=== PATIENT | male | born 1965 | race Caucasian/White ===

== ENCOUNTER → 2018-06-18 | Outpatient (CLI) | payer OTHER ==
[2018-06-18 22:16] LABS: ESTRADIOL LEVEL 14.1 pg/mL (7.6-42.6); PROLACTIN 11.7 ng/mL (4.0-15.2)
[2018-06-21 21:09] LABS: TESTOSTERONE FREE 4.68 ng/dL (5.00-21.00); TESTOSTERONE TOTAL 154 ng/dL (264-916)
== END | disposition home or self-care (01) ==
LOC: LAB 10:12
PROVIDERS: ATTEND Urology
DX: Z12.5 Encounter for screening for malignant neoplasm of prostate (principal); E29.1 Testicular hypofunction
CPT/HCPCS: 36415; 82670; 83002; 84146; 84402; 84403; G0103

== ENCOUNTER → 2018-06-30 | Outpatient (CLI) | payer OTHER ==
[~2018-06-30] MED LIST: BETA15CR5 TP; ERGO500027 PO; METF500T16 PO
--- NOTE | 2018-07-01 12:12 | SLEEP ---
DATE OF STUDY: 06/30/2018 ATTENDING PHYSICIAN: Dr. Leona Shields. The patient is a 53-year-old who weighs 355 pounds with a BMI of 47. Ideal score was 11. The patient underwent split night study at [facility]. During the night study, the patient spent 426 minutes in bed and slept for 353 minutes with a sleep efficiency of 83%. Sleep latency was 3 minutes with a REM latency of 223 minutes. Overall, sleep architecture showed increased stage 1 sleep and increased stage 2 sleep. Normal slow wave and normal REM sleep. During the initial diagnostic portion of the study, the patient slept for 132 minutes. During that time, there were 71 obstructive apneas, no mixed or central apneas and 158 hypopneas. The patient's apnea hypopnea index was 105 per hour, supine index 114 per hour. REM sleep was not seen during the diagnostic portion of the study. EKG monitoring revealed average heart rate of 87 beats per minute. Normal sinus rhythm. No sustained arrhythmias were observed. PLMs were not seen. Nocturnal oximetry study revealed an average oxygen saturation 97% with the lowest of 83%. 6% of time oxygen saturation remained between 80% and 89%. The patient met the criteria for CPAP initiation. He was started at 5 cm water and titrated up to 17 cm of water. At the final pressure, the patient slept for 127 minutes. The patient had supine sleep as well as REM sleep. The patient's AHI was reduced to 1 per hour and oxygen saturation remained above 93%. The patient used a medium size full face mask. IMPRESSION: 1. Severe sleep apnea-hypopnea syndrome at an AHI of 105 per hour. 2. Mild nocturnal hypoxia secondary to obstructive sleep apnea, but resolved with CPAP. 3. No significant PLMs. RECOMMENDATIONS: 1. CPAP at 17 cm water completely eliminated the patient's sleep apnea and should be used on a nightly basis. 2. Follow up in 4-6 weeks to assess compliance with CPAP and to document clinical improvement. 3. Weight loss is strongly advised. 4. Avoid [employer] depressants. 5. Caution regarding driving until symptoms of sleep apnea resolve with the use of CPAP. POONAM MONTEJO MD DR: KENDALL/lauren JOB#: [id number] / [id number] LEONA Leonard
== END | disposition home or self-care (01) ==
LOC: RT 17:47
PROVIDERS: ATTEND Neuromusculoskeletal Medicine & OMM
DX: G47.33 Obstructive sleep apnea (adult) (pediatric) (principal); R06.83 Snoring
CPT/HCPCS: 95810

== ENCOUNTER → 2018-07-13 | Outpatient (CLI) | payer OTHER ==
--- NOTE | 2018-07-14 08:42 | KCIC ---
MR of the left ankle Indication: Left ankle instability. Injury for the last 5 or 6 years. Swelling. Comparison: None are available Technique: Standard multiplanar sequences are obtained. FINDINGS: Artifact: No significant image degradation. Lateral: Peroneal tendons: Intact, no dislocation Lateral collateral ligaments: * Anterior talofibular ligament: Not clearly seen. No focal edema in this area. * Calcaneofibular ligament: Not well seen * Posterior talofibular ligament: Scarring, no acute injury Tibiofibular syndesmosis: Anterior inferior tibiofibular ligament is intact. Tibiofibular syndesmosis is intact. Medial: Posterior tibial tendon: Intact Flexor digitorum longus and hallucis tendons: Intact Medial ligaments: No evidence of acute deltoid ligament tear Anterior: Anterior tibial tendon: Intact Extensor hallucis longus tendon: Intact Extensor digitorum longus tendon: Intact Posterior: Achilles tendon: Intact. Small enthesophyte at the calcaneal insertion. Plantar aponeurosis: Mild hypointense thickening compatible with mild chronic plantar fasciitis. Subtalar joints: Patent Tarsal sinus: Intact Talar Dome: Intact Bones: No acute fracture or bone destruction. There is bone hypertrophy at the lateral talus and fibula, with a small ossicle adjacent to the medial malleolus and lateral malleolus. Findings likely due to old injury or osteoarthritis. Findings could also indicate instability at the ankle. Fluid:No significant effusion. Joints: Mild degenerative changes at the tibiotalar joint. Soft tissues: Unremarkable Impression: 1. Poorly defined lateral collateral ligaments, likely due to old injury or tear. 2. Degenerative changes at the tibiotalar joint with bone hypertrophy about the malleoli and lateral talus, could be related to old trauma or instability. At the tibiotalar joint. 3. Mild chronic plantar fasciitis. Electronically signed by: Kade Green MD (07/14/2018 8:40 AM) [facility]
== END | disposition home or self-care (01) ==
LOC: KCIC MRI 17:16
PROVIDERS: ATTEND Orthopaedic Surgery Sports Medicine
DX: M72.2 Plantar fascial fibromatosis (principal); M89.372 Hypertrophy of bone, left ankle and foot; M19.072 Primary osteoarthritis, left ankle and foot
CPT/HCPCS: 73721

== ENCOUNTER → 2018-07-22 | Day surgery (SDC) | payer OTHER ==
[~2018-07-22] MED LIST changes: +HYDROmorphone 2 MG/ML VIAL IV PRN; +IV RINGERS,LACTATED 1000ML 1,000 ML IV SCH; +LIDOCAINE 1% PF 2 ML VIAL. ID PRN; +MORPHINE SULFATE 2 MG/ML VIAL. IV PRN; +ONDANSETRON PF 4 MG/2 ML VIAL. IV PRN; +PROCHLORPERAZINE 10 MG/2 ML VIAL. IV PRN; +PROPOFOL 60 ML IV ONE; +fentaNYL PF VIAL 100 MCG/2 ML VIAL IV PRN
[2018-07-22 08:25] VITALS: BP 157/105
--- NOTE | 2018-07-24 10:09 | PATHOLOGY ---
[facility] Accession Number: [id number] . 01 Material submitted: . PART A: DISTAL ESOPHAGUS PART B: DESCENDING COLON POLYP PART C: TRANSVERSE COLON POLYP PART D: SPLENIC FLEXURE MASS . 01 Clinical history: . Heartburn, screening . 02 Diagnosis: A. Esophageal biopsy, distal esophagus: - Esophagitis with eosinophils. See comment. . B. Colon biopsy, descending colon polyp: - Tubular adenoma. . C. Colon biopsy, transverse colon polyp: - Tubular adenoma. . D. Colon biopsies, splenic flexure mass: - ADENOCARCINOMA, MODERATELY-WELL DIFFERENTIATED, ULCERATED. SEE COMMENT. LBQ/07/23/2018 . 02 Comment: Sections of the distal esophageal biopsy reveal segments of focally tangentially oriented hyperplastic squamous esophageal mucosa. There are increased intraepithelial eosinophils. The differential diagnosis of esophagitis with eosinophils includes reflux esophagitis, "pale esophagitis", and eosinophilic esophagitis. Focally, there are up to 20-30 intraepithelial eosinophils per high power field. This finding is suggestive of eosinophilic esophagitis. . Sections of the descending colon biopsy reveal a large tubular adenoma showing no high grade dysplasia or evidence of malignancy. . Sections of the transverse colon biopsy reveal a small tubular adenoma showing no high grade dysplasia or evidence no malignancy. . Sections of the splenic flexure colon biopsies focally reveal atypical glands, irregularly infiltrating and inflamed and focally reactive appearing stroma. There is evidence of ulceration. One of the biopsy segments appears to show tubular adenoma with high grade dysplasia. The findings are supportive of the diagnosis of a moderately-well differentiated adenocarcinoma. . The case is also examined by Dr. Ellen Shah, who concurs with the diagnosis. (JPM/db 07/23/2018) . This case was prepared and proofread by Dr. Adriel Arellano and electronically signed and released by Dr. Ellen Shah. . 02 Electronically signed: . Ellen Shah MD, Pathologist NPI- [id number] . 01 Gross description: . A. Received in formalin labeled "Jose Craig, distal esophagus BX," are multiple segments of guevara soft tissue measuring 0.7 x 0.5 x 0.1 cm in aggregate dimensions. The specimen is filtered and entirely submitted in cassette A1. . B. Received in formalin labeled "Jose Craig, descending colon polyp," is a 1.6 x 1.1 x 1.4 cm polypoid piece of guevara soft tissue. The margin is inked and the specimen is sectioned perpendicular to the margin and entirely submitted in cassette B1 and B2. Additionally received in the same container is a 0.6 x 0.6 x 0.7 cm polypoid piece of guevara soft tissue with a stalk measuring 0.4 cm in length and 0.6 cm in diameter. The margin of the stalk is inked and the specimen is sectioned perpendicular to the margin and entirely submitted in cassette B3. . C. Received in formalin labeled "Jose Craig, transverse colon polyp," are 2 segments of guevara soft tissue measuring 0.7 x 0.3 x 0.3 cm in aggregate dimensions and ranging from 0.3 to 0.4 cm in maximum dimension. The specimen is submitted entirely in cassette C1. . D. Received in formalin labeled "Jose Craig, splenic flexure mass, BX," are multiple segments of guevara soft tissue measuring 1.1 x 0.3 x 0.1 cm in aggregate dimensions. The specimen is filtered and entirely submitted in cassette D1. (TSD; 07/22/2018) TOB/TOB . 02 Pathologist provided ICD-10: K20.9, D12.4, D12.3, C18.5 . 02 CPT . 637033, 209906, 823716, 972072 Specimen Comment: A courtesy copy of this report has been sent to Specimen Comment: [phone], . Specimen Comment: Report sent to / DR THOMAS Specimen Comment: A duplicate report has been generated due to demographic updates. Performed at: [address] [place] [address] [address], [place], [place] [id number] MD Herbert Gonzalez MD Phone: [phone] Performed at: [address] [id number] MD Adriel Arellano MD Phone: [phone]
== END | disposition home or self-care (01) ==
LOC: ENDOS 05:48
PROVIDERS: ATTEND Internal Medicine Gastroenterology
DX: Z12.11 Encounter for screening for malignant neoplasm of colon (principal); C18.5 Malignant neoplasm of splenic flexure; D12.3 Benign neoplasm of transverse colon; D12.4 Benign neoplasm of descending colon; K20.9 Esophagitis, unspecified; K57.30 Diverticulosis of large intestine without perforation or abscess without bleeding; K64.0 First degree hemorrhoids; M19.072 Primary osteoarthritis, left ankle and foot; G47.33 Obstructive sleep apnea (adult) (pediatric); Z79.899 Other long term (current) drug therapy; Z98.890 Other specified postprocedural states
CPT/HCPCS: 43239; 45380; 45385; 82962; 88305; J2704

== ENCOUNTER → 2018-08-19 | Outpatient (CLI) | payer OTHER ==
[2018-07-22 08:25] VITALS: BP 157/105
[~2018-08-19] MED LIST changes: +ATOR20TA58 PO; -HYDROmorphone 2 MG/ML VIAL IV PRN; -IV RINGERS,LACTATED 1000ML 1,000 ML IV SCH; -LIDOCAINE 1% PF 2 ML VIAL. ID PRN; -MORPHINE SULFATE 2 MG/ML VIAL. IV PRN; -ONDANSETRON PF 4 MG/2 ML VIAL. IV PRN; -PROCHLORPERAZINE 10 MG/2 ML VIAL. IV PRN; -PROPOFOL 60 ML IV ONE; -fentaNYL PF VIAL 100 MCG/2 ML VIAL IV PRN
[2018-08-19 14:03] LABS: BASO # 0.1 x10^3/uL (0.0-0.2); BASO % 1 % (0-3); EOS # 0.3 x10^3/uL (0.0-0.7); EOS % 3 % (0-3); HEMATOCRIT 42.8 % (39.0-53.0); HEMOGLOBIN 14.2 g/dL (13.0-17.5); LYMPH % 24 % (24-48); MEAN CORPUSCULAR HEMOGLOBIN 27 pg (25-35); MEAN CORPUSCULAR HGB CONC 33 g/dL (31-37); MEAN CORPUSCULAR VOLUME 82 fL (79-100); MONO # 0.4 x10^3/uL (0.0-1.1); MONO % 5 % (0-9); NEUT # 5.7 x10^3uL (1.8-7.7); NEUT % 68 % (31-73); PLATELET COUNT 237 x10^3/uL (140-400); RED BLOOD COUNT 5.22 x10^6/uL (4.30-5.70); RED CELL DISTRIBUTION WIDTH 15.4 % (11.5-14.5); WHITE BLOOD COUNT 8.4 x10^3/uL (4.0-11.0)
[2018-08-19 14:30] LABS: ALBUMIN 3.6 g/dL (3.4-5.0); CALCIUM 8.8 mg/dL (8.5-10.1); CREATININE 0.9 mg/dL (0.7-1.3); GFR 87.6; POTASSIUM 3.9 mmol/L (3.5-5.1)
[2018-08-19 19:19] LABS: HEMOGLOBIN A1C 5.8 % (4.8-5.6)
== END | disposition home or self-care (01) ==
LOC: SURGPAT 12:58
PROVIDERS: ATTEND Surgery
DX: Z01.818 Encounter for other preprocedural examination (principal); C18.9 Malignant neoplasm of colon, unspecified
CPT/HCPCS: 36415; 80048; 82040; 83036; 85025

== ENCOUNTER 2018-08-25 08:12 | Inpatient (IN) | payer OTHER ==
[2018-08-25] VITALS (10 sets, daily range): BP systolic 115–141; BP diastolic 75–88
[~2018-08-25] VITALS: Ht 185.4 cm; Wt 154.2 kg
[~2018-08-25 08:12] MED LIST changes: +BACITRACIN 50,000 UNIT in IV NORMAL SALINE 500ML BAG 500 ML IRR ONE; +CLINDAMYCIN 900MG PREMIX 50 ML IV PRN; +IV RINGERS,LACTATED 1000ML 1,000 ML IV SCH; +LIDOCAINE 1% PF 2 ML VIAL. ID PRN; +ONDANSETRON PF 4 MG/2 ML VIAL. IV PRN; +PROCHLORPERAZINE 10 MG/2 ML VIAL. IV PRN; +fentaNYL PF VIAL 100 MCG/2 ML VIAL IV PRN
[2018-08-25] MEDS ORDERED: ROCURONIUM 50 MG/5 ML VIAL. ONE (09:18)
[2018-08-25] MEDS ORDERED: ONDANSETRON PF 4 MG/2 ML VIAL. ONE (09:18)
[2018-08-25] MEDS ORDERED: DEXAMETHASONE SOD PHOS 20 MG/5 ML VIAL. ONE (09:18)
[2018-08-25] MEDS ORDERED: PROPOFOL 20 ML IV ONE (09:18)
[2018-08-25] MEDS ORDERED: FAMOTIDINE 20 MG/2 ML VIAL ONE (09:18)
[2018-08-25] MEDS ORDERED: LIDOCAINE 2% PF Vial for OR 5 ML VIAL. ONE (09:18)
[2018-08-25] MEDS ORDERED: fentaNYL PF VIAL 100 MCG/2 ML VIAL ONE ×2 (09:19→11:15)
[2018-08-25] MEDS ORDERED: MIDAZOLAM HCL/PF 2 MG/2 ML VIAL. ONE (09:19)
[2018-08-25] MEDS ORDERED: BUPIVAC MPF-EPI 0.5%-1:200000 30 ML VIAL. ONE (09:37)
[2018-08-25] MEDS ORDERED: KETAMINE HCL IN STERILE WATER 50 MG/5 ML SYRINGE ONE (10:37)
[2018-08-25] MEDS ORDERED: DESFLURANE > 120 MINUTES IH ONE (10:58)
[2018-08-25] MEDS ORDERED: 0.9 % SODIUM CHLORIDE 20 ML VIAL. IJ ONE (11:11)
[2018-08-25] MEDS ORDERED: VECURONIUM BOLUS 10 MG VIAL. IV ONE (11:12)
[2018-08-25] MEDS ORDERED: HYDROmorphone 2 MG/ML VIAL ONE (11:36)
[2018-08-25] MEDS ORDERED: METOCLOPRAMIDE HCL 10 MG/2 ML VIAL. ONE (12:07)
[2018-08-25] MEDS ORDERED: NEOSTIGMINE METHYLSULFATE 5 MG/5 ML SYRINGE. ONE (12:18)
[2018-08-25] MEDS ORDERED: GLYCOPYRROLATE 1 MG/5 ML VIAL. ONE (12:18)
[2018-08-25] MEDS ORDERED: KETOROLAC 30 MG/ML INJ FOR OR. INJ ONE (13:38)
[2018-08-25] MEDS ORDERED: ONDANSETRON PF 4 MG/2 ML VIAL. IV PRN (14:00)
[2018-08-25] MEDS ORDERED: BENZOCAINE/MENTHOL LOZENGE. PO PRN (14:00)
[2018-08-25] MEDS ORDERED: MORPHINE SULFATE/PF 30 ML IV PRN (14:00)
[2018-08-25] MEDS ORDERED: PHENOL ORAL SPRAY 177ML BOTTLE. PO PRN (14:00)
[2018-08-25] MEDS ORDERED: 0.9 % SODIUM CHLORIDE 10 ML DISP.SYRIN. IV PRN (14:00)
--- NOTE | 2018-08-25 14:18 | PDOC ---
BRIEF OPERATIVE NOTE Date: Aug 25, 2018 Pre-Op Diagnosis colon cancer, splenic flexure Post-Op Diagnosis same Procedure Performed d/x l/s open colon resection Surgeon Darrion Traffic Operations Engineer Marge MARTIN Anesthesia Type: General Blood Loss 50cc IV Fluid 2000cc Urine Output 300cc Specimens Obtained splenic flexure of the colon with silk stitch at proximal end Findings mass at splenic flexure omental adhesion to RLQ Complications none Operative Note Wk # [id number] JOSE A DONNELLY MD Aug 25, 2018 14:18
--- NOTE | 2018-08-25 15:05 | OP ---
DATE OF SURGERY: PREOPERATIVE DIAGNOSIS: Biopsy proven carcinoma of the colon, splenic flexure. POSTOPERATIVE DIAGNOSIS: Biopsy proven carcinoma of the colon, splenic flexure. PROCEDURE: Diagnostic laparoscopy followed by open colon resection. SURGEON: Donte Donnelly MD MIDDLE STITCHER: VERONICA Laureano. ANESTHESIA: General endotracheal. BLOOD LOSS: 50. INTRAVENOUS FLUIDS: 2000. URINE OUTPUT: 300. INDICATIONS: The patient is a 53-year-old morbidly obese gentleman with biopsy-proven cancer of the colon near the splenic flexure, brought for resection. OPERATIVE FINDINGS: The liver was smooth and sharp. The gallbladder was distended. Stomach unremarkable with an NG tube in place. The small bowel was run from ligament of Treitz to ileocecal valve. An area of the distal small bowel was under a band of omentum attached to the right lower quadrant. This was freed and the distal small bowel mobilized. Appendix unremarkable. Ascending, transverse colon and descending and sigmoid colons were without palpable abnormality. The palpable mass had been tattooed at the splenic flexure. DESCRIPTION OF PROCEDURE: The patient brought to the operating suite, given a general endotracheal anesthetic. Pittman catheter placed to dependent drainage and the abdomen prepped and draped in the usual sterile fashion. A supraumbilical incision was infiltrated with local anesthetic, incised and a 5 mm Visiport used to safely gain access into the abdominal cavity, taking care to avoid injury to abdominal contents. Pneumoperitoneum established. Camera was inserted. Inspection carried out with results as noted above. With the table in reverse Trendelenburg rolled to the right, omentum was swept down onto the left upper quadrant and the area of tattoo was identified. Table returned to level. Abdomen decompressed. Midline incision from xiphoid to the original port site made through the skin and generous subcutaneous tissue down the anterior sheath. Opened in the midline, abdomen explored with results as noted above. With the Omni self-retaining retractor for exposure, we set about mobilizing the mid distal transverse colon and splenic flexure and proximal descending colon by taking down the white line of Toldt and dividing the gastrocolic omentum. Once we adequately mobilized the bowel, a proximal line of resection was selected and divided with a RALPH stapler. The mesocolon was serially clamped, divided and ligated to a point beyond the process, which was similarly divided with a RALPH and the specimen passed off. A tension-free anastomosis was created by placing a posterior row of interrupted 3-0 Vicryl sutures. Proximal bowel occluded with an atraumatic clamp. Staple lines excised. Mucosal anastomosis created with a running locked 3-0 chromic first posteriorly, then anteriorly. Clamp removed. Anastomosis completed with an anterior row of 3-0 Vicryl interrupted sutures. The mesocolon was approximated to prevent herniation. There was competency and patency of the anastomosis at completion. The omental band from the right lower quadrant was carefully divided and the distal small bowel was mobilized. The abdomen was irrigated, evacuated and checked for adequate hemostasis. A first sponge count was made and was correct. A "ghost" ileostomy was then created by passing a vessel loop through the right lower quadrant of the abdominal wall, placing it around the distal small bowel without creating obstruction and securing it to the skin with a nylon suture. We again checked for hemostasis and when a second sponge count was correct, the abdomen was closed in running fashion using #1 looped PDS suture tied in the middle. Subq was drained with a La[place]dale, approximated with 3-0 Vicryl, skin closed with 4-0 Monocryl. Sterile dressings applied. Postop foreign body film was negative for unexplained foreign body. The patient was awakened from his anesthetic and taken to the recovery room in satisfactory condition. DONET DONNELLY MD DR: SIMONE/lauren JOB#: [id number] / [id number] MAXI Cruz MD, DAVID MD
--- NOTE | 2018-08-25 15:46 | RAD ---
KUB Clinical indications: Postoperative study after colon resection. All counts are correct. One Stanley drain in place. IMPRESSION: NG tube is in place and the tip is seen within the distal body of the stomach. Stanley drain is seen within the midline of the abdomen. The pelvis is not seen in this study. The right side of the abdomen is not completely seen in this study. No other radiopaque foreign bodies are evident. No dilatation of large or small bowel is evident. Electronically signed by: Odin Mckeon MD (08/25/2018 3:42 PM) [facility]
[2018-08-25] MEDS: POTASSIUM CL 20MEQ-0.45% NACL 1,000 ML IV SCH (17:01)
[2018-08-26] MEDS: POTASSIUM CL 20MEQ-0.45% NACL 1,000 ML IV SCH ×3 (02:00→08:03)
[2018-08-26 03:05] VITALS: BP 119/82
[2018-08-26] MEDS: ENOXAPARIN 40 MG/0.4 ML SYRINGE. SQ SCH (05:49)
[2018-08-26 07:00] VITALS: BP 137/84
[2018-08-26 11:00] VITALS: BP 123/79
--- NOTE | 2018-08-26 11:11 | PDOC ---
SURGICAL PROGRESS NOTE Subjective up to bedside chair family present Vital Signs Vital Signs Date Time Temp Pulse Resp B/P (MAP) Pulse Ox O2 Delivery O2 Flow Rate FiO2 08/26/18 08:00 Nasal Cannula 2.0 08/26/18 07:00 98.1 97 18 137/84 (101) 98 98.1 I&O Intake and Output 08/26/18 07:00 Intake Total 2250 ml Output Total 1425 ml Balance 825 ml Intake IV Total 2250 ml Output Urine Total 1275 ml Gastric Drainage Total 100 ml Estimated Blood Loss 50 ml PATIENT HAS A SHABAZZ: Yes General: Alert, No acute distress HEENT: Other (NG patent with bilious return) Abdomen: Soft, Other (dressing intact) Labs Laboratory Tests Test 08/25/18 09:10 08/25/18 13:53 08/25/18 16:42 08/25/18 20:48 Glucose (Fingerstick) 105 mg/dL (70-99) 168 mg/dL (70-99) 178 mg/dL (70-99) 186 mg/dL (70-99) Test 08/26/18 07:35 Glucose (Fingerstick) 132 mg/dL (70-99) Laboratory Tests Test 08/25/18 13:53 08/25/18 16:42 08/25/18 20:48 08/26/18 07:35 Glucose (Fingerstick) 168 mg/dL (70-99) 178 mg/dL (70-99) 186 mg/dL (70-99) 132 mg/dL (70-99) Assessment/Plan POD 1 colon resection NG trial in AM d/c shabazz continue accurate I and O JOSE A DONNELLY MD Aug 26, 2018 11:11
--- NOTE | 2018-08-26 12:24 | CONS ---
DATE OF CONSULTATION: 08/26/2018 REASON FOR CONSULTATION: Medical management. HISTORY OF PRESENT ILLNESS: The patient is a 53-year-old male patient who was apparently diagnosed with colon cancer at the splenic flexure and was admitted and underwent open colon resection. He initially underwent diagnostic laparoscopy followed by open colon resection and I saw him today for medical management. He has multiple medical problems including type 2 diabetes for which he is on metformin. He is currently n.p.o. He has an NG tube to suction. When questioning him, he denied any complaint. PAST MEDICAL HISTORY: Significant for type 2 diabetes, morbid obesity, obstructive sleep apnea, hypogonadism. PAST SURGICAL HISTORY: Significant for appendectomy, tonsillectomy, 5 knee surgeries. He underwent obviously colonoscopy. ALLERGIES: He is allergic to PENICILLIN, CODEINE, TETRACYCLINE and STRAWBERRY. MEDICATIONS: He is currently on following medications: He is on atorvastatin calcium 20 mg at bedtime, metformin 500 mg twice a day with meals, betamethasone dipropionate topically twice a day, ergocalciferol, vitamin D2 50,000 units once a week. FAMILY HISTORY: He has 2 sisters and 2 brothers. One sister has celiac disease and systemic lupus and Graves' disease. One brother has psoriatic arthritis and sarcoidosis. His father at the age of 85 because of gout and pulmonary fibrosis as well as senile macular degeneration. His mother at the age of 72 because of multiple sclerosis. SOCIAL HISTORY: He is currently , has daughter and a son. Never smoked, does not drink alcohol or recreational drugs. 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 REVIEW OF SYSTEMS: The patient denied any blurring of vision, cataract, glaucoma or macular degeneration. Denied any earache, tinnitus or sensorineural deafness. Denied any nosebleeds, stuffy nose or postnasal drip. Denied any sore throat, sore tongue, toothache, hoarseness of voice or difficulty swallowing. Denied any nausea, vomiting, diarrhea or constipation. Denied any hematemesis, melena or hematochezia. Denied any dysuria, frequency or hematuria. Denied any chest pain, shortness of breath, orthopnea, paroxysmal nocturnal dyspnea. Denied any cough, phlegm or hemoptysis. PHYSICAL EXAMINATION: GENERAL: When I saw him today, he was sitting comfortably in his recliner, in no apparent distress, slightly pale, but no jaundice, cyanosis, or thyromegaly. No jugular venous distension. No lower limb edema. VITAL SIGNS: His heart rate was 109, blood pressure was 123/79, temperature was 98, respiratory rate was 18 and oxygen saturation was 94% on 2 liters of oxygen. HEAD, EYES, EARS, NOSE AND THROAT: Showed normocephalic, atraumatic. NECK: Supple. HEART: Showed normal first and second sounds. No gallop, rub or murmur. CHEST: Clear to auscultation. No crepitation or rhonchi. ABDOMEN: Distended, soft, nontender. No guarding or rigidity. No organomegaly. Hernial orifice intact and bowel sounds normal. Midline surgical incision covered with dressing. NEUROLOGIC: He was awake, alert, responding appropriately. Cranial nerves intact. EXTREMITIES: He moves extremities without difficulty. Has an indwelling Pittman catheter. His lab work showed his blood sugar seemed to be reasonably controlled. He is currently on normal saline with potassium chloride at 100 mL per hour. Blood sugar at times seems to be reasonably controlled. I will obviously check all his labs and monitor his blood sugar every 6 hours for the time being and also starting low dose sliding scale once his NG tube is removed and he is able to eat, continued initially on sliding scale insulin, eventually start him back on his metformin. Thank you, Dr. Maier for allowing me to participate in the care of this patient. ALEJANDRA ANDRADE MD DR: KAZ/lauren JOB#: [id number] / [id number]
[2018-08-26 15:00] VITALS: BP 127/82
[2018-08-26] MEDS ORDERED: IPRATRPIUM/ALBUTEROL 0.5/2.5MG 3 ML NEBU. NEB PRN (19:15)
[2018-08-26 19:20] VITALS: BP 145/90
[2018-08-26 23:27] VITALS: BP 148/108
[2018-08-27 03:05] VITALS: BP 155/80
[2018-08-27] MEDS: POTASSIUM CL 20MEQ-0.45% NACL 1,000 ML IV SCH ×2 (05:59→15:59)
[2018-08-27] MEDS: ENOXAPARIN 40 MG/0.4 ML SYRINGE. SQ SCH ×2 (06:14→19:34)
[2018-08-27 06:35] LABS: HEMATOCRIT 41.9 % (39.0-53.0); HEMOGLOBIN 14.2 g/dL (13.0-17.5); RED BLOOD COUNT 5.1 x10^6/uL (4.30-5.70); RED CELL DISTRIBUTION WIDTH 15.7 % (11.5-14.5); WHITE BLOOD COUNT 13.3 x10^3/uL (4.0-11.0)
[2018-08-27 07:00] VITALS: BP 128/88
[2018-08-27 07:09] LABS: ALBUMIN 3.2 g/dL (3.4-5.0); ALBUMIN/GLOBULIN RATIO 0.8 (1.0-1.7); CALCIUM 9.1 mg/dL (8.5-10.1); CREATININE 1.1 mg/dL (0.7-1.3); GFR 69.5; TOTAL BILIRUBIN 0.9 mg/dL (0.2-1.0); TOTAL PROTEIN 7.1 g/dL (6.4-8.2)
--- NOTE | 2018-08-27 08:56 | PDOC ---
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[employer] 08/27/18 0856: SURGICAL PROGRESS NOTE Subjective NG out no n/v no flatus yet Vital Signs Vital Signs Date Time Temp Pulse Resp B/P (MAP) Pulse Ox O2 Delivery O2 Flow Rate FiO2 08/27/18 07:00 98.1 113 18 128/88 (101) 94 98.1 08/27/18 03:05 Room Air 08/26/18 15:00 2.0 I&O Intake and Output 08/27/18 07:00 Intake Total 2450 ml Output Total 900 ml Balance 1550 ml Intake Oral 50 ml IV Total 1200 ml Other 1200 ml Gastric Drainage Total 900 ml # Voids 2 General: Alert, Oriented X3, Cooperative, No acute distress Abdomen: Soft, Other (dressing dry) Labs Laboratory Tests Test 08/25/18 09:10 08/25/18 13:53 08/25/18 16:42 08/25/18 20:48 Glucose (Fingerstick) 105 mg/dL (70-99) 168 mg/dL (70-99) 178 mg/dL (70-99) 186 mg/dL (70-99) Test 08/26/18 07:35 08/26/18 11:38 08/26/18 16:46 08/26/18 21:13 Glucose (Fingerstick) 132 mg/dL (70-99) 122 mg/dL (70-99) 116 mg/dL (70-99) 149 mg/dL (70-99) Test 08/27/18 05:30 08/27/18 08:00 White Blood Count 13.3 x10^3/uL (4.0-11.0) Red Blood Count 5.10 x10^6/uL (4.30-5.70) Hemoglobin 14.2 g/dL (13.0-17.5) Hematocrit 41.9 % (39.0-53.0) Mean Corpuscular Volume 82 fL (79-100) Mean Corpuscular Hemoglobin 28 pg (25-35) Mean Corpuscular Hemoglobin Concent 34 g/dL (31-37) Red Cell Distribution Width 15.7 % (11.5-14.5) Platelet Count 252 x10^3/uL (140-400) Sodium Level 135 mmol/L (136-145) Potassium Level 4.0 mmol/L (3.5-5.1) Chloride Level 99 mmol/L (98-107) Carbon Dioxide Level 25 mmol/L (21-32) Anion Gap 11 (6-14) Blood Urea Nitrogen 11 mg/dL (8-26) Creatinine 1.1 mg/dL (0.7-1.3) Estimated GFR (Cockcroft-Gault) 69.5 BUN/Creatinine Ratio 10 (6-20) Glucose Level 112 mg/dL (70-99) Calcium Level 9.1 mg/dL (8.5-10.1) Total Bilirubin 0.9 mg/dL (0.2-1.0) Aspartate Amino Transf (AST/SGOT) 14 U/L (15-37) Alanine Aminotransferase (ALT/SGPT) 30 U/L (16-63) Alkaline Phosphatase 95 U/L (46-116) Total Protein 7.1 g/dL (6.4-8.2) Albumin 3.2 g/dL (3.4-5.0) Albumin/Globulin Ratio 0.8 (1.0-1.7) Glucose (Fingerstick) 138 mg/dL (70-99) Laboratory Tests Test 08/26/18 11:38 08/26/18 16:46 08/26/18 21:13 08/27/18 05:30 Glucose (Fingerstick) 122 mg/dL (70-99) 116 mg/dL (70-99) 149 mg/dL (70-99) White Blood Count 13.3 x10^3/uL (4.0-11.0) Red Blood Count 5.10 x10^6/uL (4.30-5.70) Hemoglobin 14.2 g/dL (13.0-17.5) Hematocrit 41.9 % (39.0-53.0) Mean Corpuscular Volume 82 fL (79-100) Mean Corpuscular Hemoglobin 28 pg (25-35) Mean Corpuscular Hemoglobin Concent 34 g/dL (31-37) Red Cell Distribution Width 15.7 % (11.5-14.5) Platelet Count 252 x10^3/uL (140-400) Sodium Level 135 mmol/L (136-145) Potassium Level 4.0 mmol/L (3.5-5.1) Chloride Level 99 mmol/L (98-107) Carbon Dioxide Level 25 mmol/L (21-32) Anion Gap 11 (6-14) Blood Urea Nitrogen 11 mg/dL (8-26) Creatinine 1.1 mg/dL (0.7-1.3) Estimated GFR (Cockcroft-Gault) 69.5 BUN/Creatinine Ratio 10 (6-20) Glucose Level 112 mg/dL (70-99) Calcium Level 9.1 mg/dL (8.5-10.1) Total Bilirubin 0.9 mg/dL (0.2-1.0) Aspartate Amino Transf (AST/SGOT) 14 U/L (15-37) Alanine Aminotransferase (ALT/SGPT) 30 U/L (16-63) Alkaline Phosphatase 95 U/L (46-116) Total Protein 7.1 g/dL (6.4-8.2) Albumin 3.2 g/dL (3.4-5.0) Albumin/Globulin Ratio 0.8 (1.0-1.7) Test 08/27/18 08:00 Glucose (Fingerstick) 138 mg/dL (70-99) Assessment/Plan s/p colon resection await bowel function increase activity JOSE A DONNELLY MD 08/27/18 1119: SURGICAL PROGRESS NOTE Assessment/Plan pt seen has "rumbles" incision c/d with minimal erythema start clears 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
--- NOTE | 2018-08-27 10:22 | PN ---
DATE: 08/27/2018 SUBJECTIVE: The patient is resting slightly propped up in bed, in no apparent respiratory distress. He is awake, alert. On questioning him, he denied any complaint. His NG tube has dislodged accidentally. His Pittman catheter was removed. He managed to urinate without any difficulty. He has no bowel movement and did not pass any gas. He was seen by the surgical team and he is now allowed to have sips of water. OBJECTIVE: GENERAL: When I examined him, however, he looked well and was clearly in no apparent respiratory distress. There was no pallor, jaundice, cyanosis or thyromegaly. No jugular venous distention. No lower limb edema. VITAL SIGNS: His heart rate was 113, blood pressure was 128/88, temperature was 98.1, respiratory rate was 18 and oxygen saturation was 94%. HEENT: Examination of the head, eyes, ears, nose and throat showed normocephalic, atraumatic. NECK: Supple. HEART: Showed normal first and second heart sounds. No gallop, rub or murmur. CHEST: Clear to auscultation. No crepitation or rhonchi. ABDOMEN: Distended, soft with a midline surgical incision covered with dressing that was dry and intact. There was no tenderness. No guarding or rigidity. No organomegaly. Bowel sounds were sluggish. NEUROLOGIC: He was awake, alert, responding appropriately. All cranial nerves intact. He moved extremities without difficulty, ambulated without assistance or assistive devices. His intake was 2250, output was 1425. LABORATORY DATA: His lab work this morning showed a serum sodium 135, potassium 4, chloride 99, bicarbonate 25, anion gap of 11, BUN 11, creatinine 1.1, estimated GFR was 69 mL per minute, his glucose 112 and calcium was 9.1. Total bilirubin, AST, ALT and alkaline phosphatase were normal. Total protein 7.1. Albumin 3.2. His white cell count was 13,300, hemoglobin 14, hematocrit 42, MCV 82 and platelet count 252,000. ASSESSMENT: 1. Biopsy-proven carcinoma of the colon, splenic flexure, status post diagnostic laparoscopy followed by open colon resection. 2. Postoperative ileus, slowly resolving. His NG tube was dislodged accidentally. He is now on water sips. Pittman catheter was removed. He is able to urinate without difficulty. 3. Other medical problems include type 2 diabetes, morbid obesity, obstructive sleep apnea and hypogonadism. Blood sugar seems to be so far within acceptable range. He did not require any insulin coverage. We will continue to monitor closely and treat as needed. ALEJANDRA ANDRADE MD DR: KAZ/lauren JOB#: [id number] / [id number]
[2018-08-27 11:00] VITALS: BP 154/89
[2018-08-27 15:00] VITALS: BP 140/79
[2018-08-27] MEDS: MEROPENEM 1 GM in IV NORMAL SALINE 100ML 100 ML IV SCH ×2 (16:22→22:00)
[2018-08-27 19:00] VITALS: BP 151/90
[2018-08-27 20:15] LABS: HEMOGLOBIN A1C 5.9 % (4.8-5.6)
[2018-08-27 23:00] VITALS: BP 149/92
[2018-08-28] MEDS: POTASSIUM CL 20MEQ-0.45% NACL 1,000 ML IV SCH ×2 (01:59→10:14)
[2018-08-28 03:00] VITALS: BP 145/81
[2018-08-28] MEDS: ENOXAPARIN 40 MG/0.4 ML SYRINGE. SQ SCH ×2 (06:10→18:04)
[2018-08-28] MEDS: MEROPENEM 1 GM in IV NORMAL SALINE 100ML 100 ML IV SCH ×3 (06:11→22:30)
[2018-08-28 07:00] VITALS: BP 157/89
--- NOTE | 2018-08-28 09:22 | PDOC ---
SURGICAL PROGRESS NOTE Subjective tolerating clears no n/v no flatus yet pain managed Vital Signs Vital Signs Date Time Temp Pulse Resp B/P (MAP) Pulse Ox O2 Delivery O2 Flow Rate FiO2 08/28/18 07:53 Room Air 08/28/18 07:00 98.0 104 18 157/89 (111) 95 98.0 08/27/18 19:42 2.0 I&O Intake and Output 08/28/18 07:00 Intake Total 590 ml Output Total 350 ml Balance 240 ml Intake Oral 590 ml Output Urine Total 350 ml # Voids 1 General: Alert, Oriented X3, Cooperative, No acute distress Abdomen: Soft, Other (ND, incision c/d/i, no erythema, indra in place) Labs Laboratory Tests Test 08/26/18 11:38 08/26/18 16:46 08/26/18 21:13 08/27/18 05:30 Glucose (Fingerstick) 122 mg/dL (70-99) 116 mg/dL (70-99) 149 mg/dL (70-99) White Blood Count 13.3 x10^3/uL (4.0-11.0) Red Blood Count 5.10 x10^6/uL (4.30-5.70) Hemoglobin 14.2 g/dL (13.0-17.5) Hematocrit 41.9 % (39.0-53.0) Mean Corpuscular Volume 82 fL (79-100) Mean Corpuscular Hemoglobin 28 pg (25-35) Mean Corpuscular Hemoglobin Concent 34 g/dL (31-37) Red Cell Distribution Width 15.7 % (11.5-14.5) Platelet Count 252 x10^3/uL (140-400) Sodium Level 135 mmol/L (136-145) Potassium Level 4.0 mmol/L (3.5-5.1) Chloride Level 99 mmol/L (98-107) Carbon Dioxide Level 25 mmol/L (21-32) Anion Gap 11 (6-14) Blood Urea Nitrogen 11 mg/dL (8-26) Creatinine 1.1 mg/dL (0.7-1.3) Estimated GFR (Cockcroft-Gault) 69.5 BUN/Creatinine Ratio 10 (6-20) Glucose Level 112 mg/dL (70-99) Hemoglobin A1c 5.9 % (4.8-5.6) Calcium Level 9.1 mg/dL (8.5-10.1) Total Bilirubin 0.9 mg/dL (0.2-1.0) Aspartate Amino Transf (AST/SGOT) 14 U/L (15-37) Alanine Aminotransferase (ALT/SGPT) 30 U/L (16-63) Alkaline Phosphatase 95 U/L (46-116) Total Protein 7.1 g/dL (6.4-8.2) Albumin 3.2 g/dL (3.4-5.0) Albumin/Globulin Ratio 0.8 (1.0-1.7) Test 08/27/18 08:00 08/27/18 11:59 08/27/18 16:41 08/27/18 20:37 Glucose (Fingerstick) 138 mg/dL (70-99) 121 mg/dL (70-99) 115 mg/dL (70-99) 110 mg/dL (70-99) Test 08/28/18 07:38 Glucose (Fingerstick) 98 mg/dL (70-99) Laboratory Tests Test 08/27/18 11:59 08/27/18 16:41 08/27/18 20:37 08/28/18 07:38 Glucose (Fingerstick) 121 mg/dL (70-99) 115 mg/dL (70-99) 110 mg/dL (70-99) 98 mg/dL (70-99) Assessment/Plan 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
[2018-08-28] MEDS ORDERED: oxyCODONE/APAP 5/325 1 TAB TABLET PO PRN (09:30)
[2018-08-28] MEDS: traMADol 50 MG TABLET PO PRN ×2 (10:13→20:19)
--- NOTE | 2018-08-28 10:27 | PN ---
DATE: 08/28/2018 SUBJECTIVE: The patient is sitting on the edge of the bed comfortably, in no apparent distress. He denied any nausea or vomiting. He has no bowel movement or passed any flatus. Nurses state he has been up and about. He is tolerating his clears, without any difficulty. OBJECTIVE: GENERAL: When I examined him this morning, he looked well and was clearly in no apparent respiratory distress, pale, but no jaundice, cyanosis or thyromegaly. No jugular venous distention. No lower limb edema. VITAL SIGNS: His heart rate was 104, blood pressure was 157/89, temperature was 98, respiratory rate was 18 and oxygen saturation was 95%. HEENT: Examination of the head, eyes, ears, nose and throat showed normocephalic, atraumatic. NECK: Supple. HEART: Showed normal first and second heart sounds. No gallop, rub or murmur. CHEST: Clear to auscultation. No crepitation or rhonchi. ABDOMEN: Distended, soft with a midline surgical incision covered with dressing. There was no tenderness. No guarding or rigidity. Bowel sounds were sluggish. NEUROLOGIC: He was awake, alert, responding appropriately. All cranial nerves intact. He moved extremities without difficulty. He ambulated without assistance or assistive devices. His intake was 2450, output was 900. LABORATORY DATA: His lab work as of this morning showed a white cell count 15,300, hemoglobin 14, hematocrit 42, MCV 82 and platelet count 252,000. His chemistry showed a BUN of 11, creatinine 1.1. His hemoglobin A1c was only 5.6%. Blood sugar has been well within normal range and did not require any insulin coverage. PLAN: Continue with current plan of management. If his blood sugars start to rise, we will put him back on his Glucophage. ALEJANDRA ANDRADE MD DR: KAZ/lauren JOB#: [id number] / [id number]
[2018-08-28 11:00] VITALS: BP 139/90
--- NOTE | 2018-08-28 14:10 | PATHOLOGY ---
[facility] Accession Number: [id number] . 01 Material submitted: . SPLENIC FLEXURE OF COLON, SILK STITCH AT PROXIMAL END . 01 Clinical history: . Splenic mass . 02 Diagnosis: Segment of colon with attached mesocolon, splenic flexure segmental resection: - INVASIVE COLORECTAL ADENOCARCINOMA, MODERATELY DIFFERENTIATED, FORMING A CENTRALLY ULCERATED TUMOR MASS MEASURING UP TO 5.0 CM IN GREATEST DIMENSION, WITH TUMOR INVASION THROUGH MUSCULARIS PROPRIA INTO PERICOLIC SOFT TISSUES. - Eleven mesocolic lymph nodes negative for tumor (0/11). - Proximal, distal, and mesocolic margin of resection negative for tumor. - No lymphovascular tumor invasion identified. - No perineural tumor invasion identified. (JPM:[facility]; 08/27/2018) . . SYNOPTIC REPORT . Surgical Pathology Cancer Case Summary . COLON AND RECTUM: Resection, Including Transanal Disk Excision of Rectal Neoplasms . Procedure ___ Other (specify): Splenic flexure segmental resection . Tumor Site ___ Colon ___ Splenic flexure . Tumor Size Greatest dimension (centimeters): 5.0 cm . Macroscopic Tumor Perforation ___ Not identified . Histologic Type ___ Adenocarcinoma . Histologic Grade ___ G2: Moderately differentiated . Tumor Extension ___ Tumor invades through the muscularis propria into pericolorectal tissue . Margins ___ All margins are uninvolved by invasive carcinoma, high-grade dysplasia, intramucosal adenocarcinoma, and adenoma Margins examined: Proximal, distal, mesocolic margins + Distance of invasive carcinoma from closest margin: 2.0 cm + Specify closest margin: Mesocolic margin . Treatment Effect ___ No known presurgical therapy . Lymphovascular Invasion ___ Not identified . Perineural Invasion ___ Not identified . + Type of Polyp in Which Invasive Carcinoma Arose + ___ None identified . Tumor Deposits ___ Not identified . Regional Lymph Nodes . Number of Lymph Nodes Involved: Zero . Number of Lymph Nodes Examined: Eleven . Pathologic Stage Classification (pTNM, AJCC 8th Edition) . Primary Tumor (pT) ___ pT3:Tumor invades through the muscularis propria into pericolorectal tissues . Regional Lymph Nodes (pN) ___ pN0:No regional lymph node metastasis . + Additional Pathologic Findings + ___ None identified . (JPM:[facility]; 08/28/2018) QMS/08/28/2018 . 02 Electronically signed: . Adriel Arellano MD, Pathologist NPI- [id number] . 01 Gross description: . The specimen is received fresh for intraoperative consultation and is designated "splenic flexure of colon silk stitch at proximal end". This consists of a segment of colon with attached mesocolic tissue. The segment is stapled closed at both ends. A suture is attached to one of the stapled ends. This denotes the proximal margin. The specimen measures approximately 12 cm in length. The colon measures approximately 4 cm in diameter, and the entire specimen measures up to 11 cm in width. The specimen has previously been opened at a point approximately 2 cm from the distal margin. The specimen is further opened along the anti-mesocolon. Arising approximately 5 cm from the proximal margin, and 4.5 cm from the distal margin, there is a nearly circumferential, centrally ulcerated, reddish brown tumor mass having raised rolled borders. The tumor measures up to 5.0 x 4.3 cm. The tumor is firmly attached to the muscular wall. The pericolic adipose tissue surrounding the mass is focally puckered. The remainder of the colonic mucosa is pinkish olmedo and transversely folded. There are no additional polyps or tumor masses. (JPM:teresita; 08/25/2018) . The serosa is inked black and the mesenteric margin blue. Sectioning through the mass reveals invasion of the muscular wall with possible extension into the pericolic fat to a depth of 0.2 cm. The mass extends 2.0 cm from the nearest mesenteric margin. The fat is placed in clearing solution to reveal multiple lymph node candidates ranging from 0.1 cm to 1.0 cm. Photo Equipment Technician sections are submitted as follows: . A1: Proximal margin A2: Distal margin A3: Mass deepest possible invasion into pericolic fat A4: Mass transition to proximal mucosa A5: Mass transition to distal mucosa A6: Additional mass A7: Mesenteric margin, perpendicular A8: One lymph node candidate, serially sectioned A9: Intact lymph node candidates A10: 2 bisected lymph node candidates, one inked black A11: One bisected lymph node candidate (SDY; 08/26/2018) . INTRAOPERATIVE CONSULTATION WITH GROSS IMPRESSION: (Adriel Arellano M.D.) . Segment of colon with attached mesocolon, splenic flexure segmental resection: - Ulcerated carcinoma of colon - margins of excision free of neoplasm. . The specimen is displayed to Dr. Maier in the operating room. The specimen is fixed in formalin prior to additional sectioning. (JPM:teresita; 08/25/2018) . Intraoperative consultation performed at [facility], [address] [place] [id number]. /QMS . 02 Pathologist provided ICD-10: C18.5 . 02 CPT . 606701, [id number] Specimen Comment: A courtesy copy of this report has been sent to Specimen Comment: [phone], . Specimen Comment: Report sent to / DR THOMAS Specimen Comment: A duplicate report has been generated due to demographic updates. Performed at: 01 [facility] [address], [place] [id number] MD Herbert Gonzalez MD Phone: [phone] Performed at: [address] [id number] MD Adriel Arellano MD Phone: [phone]
[2018-08-28 15:00] VITALS: BP 143/78
[2018-08-28 19:00] VITALS: BP 156/91
[2018-08-28] MEDS: LACTOBACILLUS RHAMNOSUS GG 1 CAPSULE. PO SCH (20:19)
[2018-08-28 23:00] VITALS: BP 155/94
[2018-08-29 03:00] VITALS: BP 139/83
[2018-08-29 05:12] LABS: BASO % 1 % (0-3); EOS # 0.2 x10^3/uL (0.0-0.7); EOS % 2 % (0-3); HEMATOCRIT 37.4 % (39.0-53.0); HEMOGLOBIN 12.7 g/dL (13.0-17.5); LYMPH # 1.8 x10^3/uL (1.0-4.8); LYMPH % 21 % (24-48); MEAN CORPUSCULAR HEMOGLOBIN 28 pg (25-35); MEAN CORPUSCULAR HGB CONC 34 g/dL (31-37); MEAN CORPUSCULAR VOLUME 83 fL (79-100); MONO # 0.5 x10^3/uL (0.0-1.1); MONO % 6 % (0-9); NEUT # 5.8 x10^3uL (1.8-7.7); NEUT % 70 % (31-73); PLATELET COUNT 218 x10^3/uL (140-400); RED BLOOD COUNT 4.52 x10^6/uL (4.30-5.70); RED CELL DISTRIBUTION WIDTH 15.6 % (11.5-14.5); WHITE BLOOD COUNT 8.3 x10^3/uL (4.0-11.0)
[2018-08-29] MEDS: ENOXAPARIN 40 MG/0.4 ML SYRINGE. SQ SCH ×2 (05:19→18:29)
[2018-08-29] MEDS: MEROPENEM 1 GM in IV NORMAL SALINE 100ML 100 ML IV SCH ×3 (05:19→20:31)
[2018-08-29 05:43] LABS: ALBUMIN 2.8 g/dL (3.4-5.0); ALBUMIN/GLOBULIN RATIO 0.8 (1.0-1.7); CALCIUM 8.8 mg/dL (8.5-10.1); CREATININE 0.9 mg/dL (0.7-1.3); GFR 87.6; POTASSIUM 3.7 mmol/L (3.5-5.1); TOTAL BILIRUBIN 0.5 mg/dL (0.2-1.0); TOTAL PROTEIN 6.3 g/dL (6.4-8.2)
[2018-08-29 07:00] VITALS: BP 130/77
--- NOTE | 2018-08-29 08:37 | PDOC ---
SURGICAL PROGRESS NOTE Subjective Patient sitting up in bed taking clear liquid diet Vital Signs Vital Signs Date Time Temp Pulse Resp B/P (MAP) Pulse Ox O2 Delivery O2 Flow Rate FiO2 08/29/18 07:00 98.0 87 18 130/77 (94) 97 Room Air 98.0 I&O Intake and Output 08/29/18 07:00 Intake Total 2300 ml Output Total 350 ml Balance 1950 ml Intake Oral 2300 ml Output Urine Total 350 ml # Voids 4 PATIENT HAS A MONTESINOS: No General: Alert, Oriented X3, Cooperative, mild distress Abdomen: Normal bowel sounds, Soft, Other (mild incisional tenderness) Extremities: No edema Labs Laboratory Tests Test 08/27/18 11:59 08/27/18 16:41 08/27/18 20:37 08/28/18 07:38 Glucose (Fingerstick) 121 mg/dL (70-99) 115 mg/dL (70-99) 110 mg/dL (70-99) 98 mg/dL (70-99) Test 08/28/18 11:36 08/28/18 16:53 08/28/18 21:03 08/29/18 03:50 Glucose (Fingerstick) 97 mg/dL (70-99) 102 mg/dL (70-99) 144 mg/dL (70-99) White Blood Count 8.3 x10^3/uL (4.0-11.0) Red Blood Count 4.52 x10^6/uL (4.30-5.70) Hemoglobin 12.7 g/dL (13.0-17.5) Hematocrit 37.4 % (39.0-53.0) Mean Corpuscular Volume 83 fL (79-100) Mean Corpuscular Hemoglobin 28 pg (25-35) Mean Corpuscular Hemoglobin Concent 34 g/dL (31-37) Red Cell Distribution Width 15.6 % (11.5-14.5) Platelet Count 218 x10^3/uL (140-400) Neutrophils (%) (Auto) 70 % (31-73) Lymphocytes (%) (Auto) 21 % (24-48) Monocytes (%) (Auto) 6 % (0-9) Eosinophils (%) (Auto) 2 % (0-3) Basophils (%) (Auto) 1 % (0-3) Neutrophils # (Auto) 5.8 x10^3uL (1.8-7.7) Lymphocytes # (Auto) 1.8 x10^3/uL (1.0-4.8) Monocytes # (Auto) 0.5 x10^3/uL (0.0-1.1) Eosinophils # (Auto) 0.2 x10^3/uL (0.0-0.7) Basophils # (Auto) 0.0 x10^3/uL (0.0-0.2) Sodium Level 139 mmol/L (136-145) Potassium Level 3.7 mmol/L (3.5-5.1) Chloride Level 103 mmol/L (98-107) Carbon Dioxide Level 27 mmol/L (21-32) Anion Gap 9 (6-14) Blood Urea Nitrogen 11 mg/dL (8-26) Creatinine 0.9 mg/dL (0.7-1.3) Estimated GFR (Cockcroft-Gault) 87.6 BUN/Creatinine Ratio 12 (6-20) Glucose Level 92 mg/dL (70-99) Calcium Level 8.8 mg/dL (8.5-10.1) Total Bilirubin 0.5 mg/dL (0.2-1.0) Aspartate Amino Transf (AST/SGOT) 25 U/L (15-37) Alanine Aminotransferase (ALT/SGPT) 27 U/L (16-63) Alkaline Phosphatase 82 U/L (46-116) Total Protein 6.3 g/dL (6.4-8.2) Albumin 2.8 g/dL (3.4-5.0) Albumin/Globulin Ratio 0.8 (1.0-1.7) Test 08/29/18 07:20 Glucose (Fingerstick) 103 mg/dL (70-99) Laboratory Tests Test 08/28/18 11:36 08/28/18 16:53 08/28/18 21:03 08/29/18 03:50 Glucose (Fingerstick) 97 mg/dL (70-99) 102 mg/dL (70-99) 144 mg/dL (70-99) White Blood Count 8.3 x10^3/uL (4.0-11.0) Red Blood Count 4.52 x10^6/uL (4.30-5.70) Hemoglobin 12.7 g/dL (13.0-17.5) Hematocrit 37.4 % (39.0-53.0) Mean Corpuscular Volume 83 fL (79-100) Mean Corpuscular Hemoglobin 28 pg (25-35) Mean Corpuscular Hemoglobin Concent 34 g/dL (31-37) Red Cell Distribution Width 15.6 % (11.5-14.5) Platelet Count 218 x10^3/uL (140-400) Neutrophils (%) (Auto) 70 % (31-73) Lymphocytes (%) (Auto) 21 % (24-48) Monocytes (%) (Auto) 6 % (0-9) Eosinophils (%) (Auto) 2 % (0-3) Basophils (%) (Auto) 1 % (0-3) Neutrophils # (Auto) 5.8 x10^3uL (1.8-7.7) Lymphocytes # (Auto) 1.8 x10^3/uL (1.0-4.8) Monocytes # (Auto) 0.5 x10^3/uL (0.0-1.1) Eosinophils # (Auto) 0.2 x10^3/uL (0.0-0.7) Basophils # (Auto) 0.0 x10^3/uL (0.0-0.2) Sodium Level 139 mmol/L (136-145) Potassium Level 3.7 mmol/L (3.5-5.1) Chloride Level 103 mmol/L (98-107) Carbon Dioxide Level 27 mmol/L (21-32) Anion Gap 9 (6-14) Blood Urea Nitrogen 11 mg/dL (8-26) Creatinine 0.9 mg/dL (0.7-1.3) Estimated GFR (Cockcroft-Gault) 87.6 BUN/Creatinine Ratio 12 (6-20) Glucose Level 92 mg/dL (70-99) Calcium Level 8.8 mg/dL (8.5-10.1) Total Bilirubin 0.5 mg/dL (0.2-1.0) Aspartate Amino Transf (AST/SGOT) 25 U/L (15-37) Alanine Aminotransferase (ALT/SGPT) 27 U/L (16-63) Alkaline Phosphatase 82 U/L (46-116) Total Protein 6.3 g/dL (6.4-8.2) Albumin 2.8 g/dL (3.4-5.0) Albumin/Globulin Ratio 0.8 (1.0-1.7) Test 08/29/18 07:20 Glucose (Fingerstick) 103 mg/dL (70-99) Assessment/Plan That is post colon resection awaiting return of bowel function continue clear liquid diet we'll advance once bowel function returns ARACELI KEYES MD Aug 29, 2018 08:37
[2018-08-29] MEDS: LACTOBACILLUS RHAMNOSUS GG 1 CAPSULE. PO SCH ×2 (10:08→20:31)
[2018-08-29] MEDS: POTASSIUM CL 20MEQ-0.45% NACL 1,000 ML IV SCH (10:11)
[2018-08-29 11:00] VITALS: BP 144/92
--- NOTE | 2018-08-29 13:13 | PN ---
DATE: 08/29/2018 INCOMPLETE DICTATION SUBJECTIVE: The patient is resting, slightly propped up, sleeping comfortably. On questioning him, he denied any complaint. In particular, denied any nausea or vomiting. Denied abdominal pain. He said that he has heard rumbling, but so far has not had any bowel movement or passed any gas. He continues to be on a clear liquid. His pathology report is available and showed that he has invasive colorectal adenocarcinoma, moderately differentiated, forming a centrally ulcerated tumor mass measuring up to 5 cm in greatest dimension, with tumor invasion through the muscularis propria into pericolic soft tissues. Eleven mesocolic lymph nodes are negative for tumor. Proximal, distal and mesocolic margin dissection negative for tumor. No evidence of lymphovascular tumor invasion identified. No perineural tumor invasion identified. PHYSICAL EXAMINATION: GENERAL: When I examined him, he looked well and was clearly in no apparent respiratory distress, slightly pale. No jaundice, cyanosis or thyromegaly. No jugular venous distention. No lower limb edema. VITAL SIGNS: His heart rate was 86, blood pressure was 139/83, temperature was 97.9, respiratory rate was 18 and oxygen saturation was 93%. HEENT: Examination of the head, eyes, ears, nose and throat showed normocephalic, atraumatic. NECK: Supple. HEART: Showed normal first and second heart sounds, with no gallop, rub or murmur. CHEST: Clear to auscultation. No crepitation or rhonchi. ABDOMEN: Distended, soft with a midline surgical incision covered with dressing that is dry and intact. There is no tenderness. No guarding or rigidity. No organomegaly. Bowel sounds are normal. NEUROLOGIC: He was sleepy, but arousable. All cranial nerves intact. He moves extremities without difficulty. His intake was 590, output was 350. LABORATORY DATA: His lab work this morning showed a white cell count of 8300, hemoglobin 12.7, hematocrit 37, MCV 83 and platelet count 218,000. His chemistry showed serum sodium 139, potassium 3.7, chloride 103, bicarbonate 27, anion gap of 9, BUN 11 and creatinine 0.9. ASSESSMENT: 1. Biopsy-proven carcinoma of the colon, involving splenic flexure, status post diagnostic laparoscopy, followed by open colon resection. The pathology report showed that he has invasive colorectal adenocarcinoma, moderately differentiated, forming a centrally ulcerated tumor mass measuring up to 5 cm in greatest dimension, with tumor invasion through the muscularis propria into pericolic soft tissue. 2. Postoperative ileus, slowly resolving. His NG tube was lodged excellently. He is now on clear liquids. Awaiting for the bowel movement before his diet can be advanced. 3. The patient has multiple other medical problems including: A. Type 2 diabetes, seems to be well controlled. B. Morbid obesity. C. Obstructive sleep apnea. D. Hypogonadism. DICTATION ENDS HERE. ALEJANDRA ANDRADE MD DR: KAZ/lauren JOB#: [id number] / [id number]
[2018-08-29 15:00] VITALS: BP 169/94
[2018-08-29 19:00] VITALS: BP 131/75
[2018-08-29 23:00] VITALS: BP 146/86
[2018-08-30 03:00] VITALS: BP 146/89
[2018-08-30] MEDS: MEROPENEM 1 GM in IV NORMAL SALINE 100ML 100 ML IV SCH ×3 (05:41→21:43)
[2018-08-30] MEDS: POTASSIUM CL 20MEQ-0.45% NACL 1,000 ML IV SCH (05:41)
[2018-08-30] MEDS: ENOXAPARIN 40 MG/0.4 ML SYRINGE. SQ SCH ×3 (05:42→20:00)
[2018-08-30 07:00] VITALS: BP 128/86
--- NOTE | 2018-08-30 08:53 | PN ---
DATE: 08/30/2018 SUBJECTIVE: The patient is sitting in his chair, eating his breakfast comfortably, in no apparent distress. He did complain of severe cramping abdominal pain, but has passed flatus and has probably multiple bowel movements. PHYSICAL EXAMINATION: GENERAL: When I examined him, he looked well and was clearly in no apparent respiratory distress. No pallor, jaundice, cyanosis or thyromegaly. No jugular venous distention. No lower limb edema. VITAL SIGNS: His heart rate was 94, blood pressure was 146/89, temperature was 97.5, respiratory rate was 18 and oxygen saturation was 93% on room air. HEENT: Examination of the head, eyes, ears, nose and throat showed normocephalic, atraumatic. NECK: Supple. CARDIAC: Normal first and second heart sounds. No gallop, rub or murmur. CHEST: Clear to auscultation. No crepitation or rhonchi. ABDOMEN: Distended, soft with some tenderness along the surgical incision. No guarding or rigidity. No organomegaly. All hernial orifices intact. Bowel sounds normal. NEUROLOGIC: He is awake, alert, responding appropriately. All cranial nerves intact. He moves extremities without difficulty. He ambulates without assistance or assistive devices. His intake was 2300, output was 350. LABORATORY DATA: His lab work as of yesterday showed a white cell count of 8300, hemoglobin 12.7, hematocrit 37.4, MCV 83 and platelet count of 218,000. His serum sodium was 139, potassium 3.7, chloride 103, bicarbonate 27, anion gap of 9, BUN 11, creatinine 0.9, estimated GFR was 87, glucose was 92 and calcium was 8.8. Total bilirubin, AST, ALT and alkaline phosphatase were normal. Total protein was 6.3. Albumin 2.8. ASSESSMENT: 1. Biopsy-proven carcinoma of the colon involving splenic flexure, status post diagnostic laparoscopy followed by open colon resection. Pathology report showed that he has invasive colorectal adenocarcinoma, moderately differentiated, forming a centrally ulcerated tumor mass, measuring up to 5 cm in greatest dimension and tumor invasion through the muscularis propria into pericolonic soft tissue. 2. Postoperative ileus, slowly improving. The patient is now passing gas and has multiple bowel movements. 3. The patient has multiple other medical problems including: A. Type 2 diabetes, seems to be well controlled. B. Morbid obesity. C. Obstructive sleep apnea. D. Hypothyroidism. PLAN: Plan is to advance diet as tolerated. ALEJANDRA ANDRADE MD DR: KAZ/lauren JOB#: [id number] / [id number]
--- NOTE | 2018-08-30 09:27 | PDOC ---
SURGICAL PROGRESS NOTE Subjective Patient doing quite well as passed both stool and flatus Vital Signs Vital Signs Date Time Temp Pulse Resp B/P (MAP) Pulse Ox O2 Delivery O2 Flow Rate FiO2 08/30/18 07:00 97.9 96 18 128/86 (100) 95 Room Air 97.9 08/29/18 21:00 2.0 I&O Intake and Output 08/30/18 07:00 Intake Total 608 ml Balance 608 ml IV Total 608 ml # Voids 3 # Bowel Movements 1 PATIENT HAS A MONTESINOS: No General: Alert, Oriented X3, Cooperative, mild distress Abdomen: Normal bowel sounds, Soft, Other (mild incisional tenderness wounds clean dry and intact) Labs Laboratory Tests Test 08/28/18 11:36 08/28/18 16:53 08/28/18 21:03 08/29/18 03:50 Glucose (Fingerstick) 97 mg/dL (70-99) 102 mg/dL (70-99) 144 mg/dL (70-99) White Blood Count 8.3 x10^3/uL (4.0-11.0) Red Blood Count 4.52 x10^6/uL (4.30-5.70) Hemoglobin 12.7 g/dL (13.0-17.5) Hematocrit 37.4 % (39.0-53.0) Mean Corpuscular Volume 83 fL (79-100) Mean Corpuscular Hemoglobin 28 pg (25-35) Mean Corpuscular Hemoglobin Concent 34 g/dL (31-37) Red Cell Distribution Width 15.6 % (11.5-14.5) Platelet Count 218 x10^3/uL (140-400) Neutrophils (%) (Auto) 70 % (31-73) Lymphocytes (%) (Auto) 21 % (24-48) Monocytes (%) (Auto) 6 % (0-9) Eosinophils (%) (Auto) 2 % (0-3) Basophils (%) (Auto) 1 % (0-3) Neutrophils # (Auto) 5.8 x10^3uL (1.8-7.7) Lymphocytes # (Auto) 1.8 x10^3/uL (1.0-4.8) Monocytes # (Auto) 0.5 x10^3/uL (0.0-1.1) Eosinophils # (Auto) 0.2 x10^3/uL (0.0-0.7) Basophils # (Auto) 0.0 x10^3/uL (0.0-0.2) Sodium Level 139 mmol/L (136-145) Potassium Level 3.7 mmol/L (3.5-5.1) Chloride Level 103 mmol/L (98-107) Carbon Dioxide Level 27 mmol/L (21-32) Anion Gap 9 (6-14) Blood Urea Nitrogen 11 mg/dL (8-26) Creatinine 0.9 mg/dL (0.7-1.3) Estimated GFR (Cockcroft-Gault) 87.6 BUN/Creatinine Ratio 12 (6-20) Glucose Level 92 mg/dL (70-99) Calcium Level 8.8 mg/dL (8.5-10.1) Total Bilirubin 0.5 mg/dL (0.2-1.0) Aspartate Amino Transf (AST/SGOT) 25 U/L (15-37) Alanine Aminotransferase (ALT/SGPT) 27 U/L (16-63) Alkaline Phosphatase 82 U/L (46-116) Total Protein 6.3 g/dL (6.4-8.2) Albumin 2.8 g/dL (3.4-5.0) Albumin/Globulin Ratio 0.8 (1.0-1.7) Test 08/29/18 07:20 08/29/18 11:12 08/29/18 16:53 08/29/18 20:48 Glucose (Fingerstick) 103 mg/dL (70-99) 89 mg/dL (70-99) 79 mg/dL (70-99) 90 mg/dL (70-99) Test 08/30/18 08:02 Glucose (Fingerstick) 101 mg/dL (70-99) Laboratory Tests Test 08/29/18 11:12 08/29/18 16:53 08/29/18 20:48 08/30/18 08:02 Glucose (Fingerstick) 89 mg/dL (70-99) 79 mg/dL (70-99) 90 mg/dL (70-99) 101 mg/dL (70-99) Assessment/Plan Status post colon resection passing stool will advance diet Patient may shower ARACELI KEYES MD Aug 30, 2018 09:27
[2018-08-30] MEDS: LACTOBACILLUS RHAMNOSUS GG 1 CAPSULE. PO SCH ×2 (09:28→20:00)
[2018-08-30 11:00] VITALS: BP 155/98
[2018-08-30 15:00] VITALS: BP 144/77
[2018-08-30 19:00] VITALS: BP 126/79
[2018-08-30 23:00] VITALS: BP 127/76
[2018-08-31] MEDS: POTASSIUM CL 20MEQ-0.45% NACL 1,000 ML IV SCH (02:39)
[2018-08-31 03:00] VITALS: BP 146/89
[2018-08-31] MEDS: MEROPENEM 1 GM in IV NORMAL SALINE 100ML 100 ML IV SCH ×2 (06:06→14:47)
[2018-08-31 07:00] VITALS: BP_SYST 141; BP_SYST 184; BP_DIAS 90; BP_DIAS 99
[2018-08-31] MEDS ORDERED: TRAM50TA PO (08:55)
--- NOTE | 2018-08-31 09:19 | PDOC ---
MIKE STEINER APRN 08/31/18 0919: SURGICAL PROGRESS NOTE Subjective tolerating diet pain managed ambulating + stools Vital Signs Vital Signs Date Time Temp Pulse Resp B/P (MAP) Pulse Ox O2 Delivery O2 Flow Rate FiO2 08/31/18 07:00 97.9 97 18 141/90 (107) 97 Room Air 97.9 I&O Intake and Output 08/31/18 07:00 Intake Total 785 ml Balance 785 ml IV Total 785 ml # Voids 11 # Bowel Movements 5 General: Alert, Oriented X3, Cooperative, No acute distress Abdomen: Soft, Other (incision c/d/i, no erythema) Labs Laboratory Tests Test 08/29/18 11:12 08/29/18 16:53 08/29/18 20:48 08/30/18 08:02 Glucose (Fingerstick) 89 mg/dL (70-99) 79 mg/dL (70-99) 90 mg/dL (70-99) 101 mg/dL (70-99) Test 08/30/18 11:28 08/30/18 16:52 08/30/18 21:13 08/31/18 07:13 Glucose (Fingerstick) 98 mg/dL (70-99) 101 mg/dL (70-99) 97 mg/dL (70-99) 96 mg/dL (70-99) Laboratory Tests Test 08/30/18 11:28 08/30/18 16:52 08/30/18 21:13 08/31/18 07:13 Glucose (Fingerstick) 98 mg/dL (70-99) 101 mg/dL (70-99) 97 mg/dL (70-99) 96 mg/dL (70-99) Assessment/Plan s/p resection possible dc home today JOSE A DONNELLY MD 08/31/18 1427: SURGICAL PROGRESS NOTE Assessment/Plan pt seen [place] removed home today follow up next week in the [place] office MIKE STEINER APRN Aug 31, 2018 09:19 JOSE A DONNELLY MD Aug 31, 2018 14:27
[2018-08-31] MEDS: LACTOBACILLUS RHAMNOSUS GG 1 CAPSULE. PO SCH (10:13)
--- NOTE | 2018-08-31 10:46 | PN ---
DATE: 08/31/2018 SUBJECTIVE: The patient is sitting comfortably in his chair, tolerated his mechanically soft diet without any problem. He has been up and about, had a shower and obviously the decision to discharge him is left to the surgical team. From my point of view, his blood sugar has been stable, he did not require his metformin, although obviously once he is at home and his diet is advanced further, he obviously needs to go back on his metformin. PHYSICAL EXAMINATION: GENERAL: When I examined him today, he looked well and was clearly in no apparent respiratory distress. VITAL SIGNS: His heart rate was 97, blood pressure 141/90, temperature was 97.9, respiratory rate was 18 and oxygen saturation was 97%. The rest of examination was stable. LABORATORY DATA: His lab work is stable. His blood sugar has been well within normal range. PLAN: From my point of view, he can be discharged if it is at best the surgical decision and he can go back on his metformin. ALEJANDRA ANDRADE MD DR: KAZ/lauren JOB#: [id number] / [id number]
[2018-08-31 11:00] VITALS: BP 138/77
--- NOTE | 2018-08-31 14:25 | DISCH ---
DISCHARGE INSTRUCTIONS Condition on Discharge Condition on Discharge: Stable Activity After Discharge Activity Instructions for Disc: Activity as tolerated, Avoid exertion Lifting Instructions after Dis: No heavy lifting Driving Instructions after Dis: Do not drive (3-4 days) Diet after Discharge Diet after Discharge: Regular Wound Incision Care Wound/Incision Care: Ice to area for comfort Other wound/incision instructi: donis castillo Follow-Up Follow up with: Darrion 09/10 JOSE A DONNELLY MD Aug 31, 2018 14:25
--- NOTE | 2018-08-31 14:27 | PDOC3 ---
Discharge Summary Visit Information Date of Admission: Aug 25, 2018 Date of Discharge: Aug 31, 2018 Admitting Diagnosis Comment: cancer splenic flexure Final Diagnosis same, morbid obesity Brief Hospital Course Allergies Allergies Coded Allergies Type Severity Reaction Last Updated Verified codeine Allergy Severe THROAT SWELLING 07/22/18 Yes Penicillins Allergy Intermediate Hives 08/19/18 Yes acetaminophen Allergy Intermediate Unknown 08/28/18 Yes oxycodone Allergy Intermediate Unknown 08/28/18 Yes strawberry Allergy Intermediate Hives 08/19/18 Yes tetracycline Allergy Intermediate Hives 08/19/18 Yes Vital Signs Vital Signs Date Time Temp Pulse Resp B/P (MAP) Pulse Ox O2 Delivery O2 Flow Rate FiO2 08/31/18 11:00 97.9 88 18 138/77 (97) 96 Room Air 97.9 Lab Results Laboratory Tests Test 08/29/18 16:53 08/29/18 20:48 08/30/18 08:02 08/30/18 11:28 Glucose (Fingerstick) 79 mg/dL (70-99) 90 mg/dL (70-99) 101 mg/dL (70-99) 98 mg/dL (70-99) Test 08/30/18 16:52 08/30/18 21:13 08/31/18 07:13 08/31/18 11:09 Glucose (Fingerstick) 101 mg/dL (70-99) 97 mg/dL (70-99) 96 mg/dL (70-99) 105 mg/dL (70-99) Laboratory Tests Test 08/30/18 16:52 08/30/18 21:13 08/31/18 07:13 08/31/18 11:09 Glucose (Fingerstick) 101 mg/dL (70-99) 97 mg/dL (70-99) 96 mg/dL (70-99) 105 mg/dL (70-99) Brief Hospital Course Mr. Craig is a 53 old obese male who presented with biopsy proven cancer, splenic flexure Discharge Information Condition at Discharge: Stable Follow Up: Weeks Disposition/Orders: D/C to Home Scheduled Atorvastatin Calcium (Atorvastatin Calcium) 20 Mg Tablet, 1 TAB PO DAILY for cholesterol, #30 Ref 5 (Reported) Entered as Reported by: RAMIREZ BLANCO on 08/19/18 1329 Last Taken: Unknown Dose on 08/23/18 Last Action: HELD on 08/25/18 1405 by JOSE A DONNELLY Betamethasone Dipropionate (Betamethasone Dipropionate) 15 Gm Cream..g., 1 NIKKO TP BID for RASH, #15 Ref 3 (Reported) Entered as Reported by: SAÚL QUEEN on 07/22/18636 Last Taken: Unknown Dose on 08/24/18 Last Action: HELD on 08/25/181404 by JOSE A DONNELLY Ergocalciferol (Vitamin D2) (Vitamin D2) 50,000 Unit Capsule, 50,000 UNIT PO WEEKLY for LOW, (Reported) Entered as Reported by: SAÚL QUEEN on 07/22/18636 Last Taken: Unknown Dose on 08/15/18 Last Action: HELD on 08/25/181404 by JOSE A DONNELLY Metformin Hcl (Metformin Hcl) 500 Mg Tablet, 500 MG PO BIDWMEALS for ANTI- DIABETIC, Ref 0 (Reported) Entered as Reported by: SAÚL QUEEN on 07/22/18636 Last Taken: Unknown Dose on 08/23/18 Last Action: HELD on 08/25/181404 by JOSE A DONNELLY Scheduled PRN Tramadol Hcl (Tramadol Hcl) 50 Mg Tablet, 50 MG PO PRN Q6HRS PRN for MILD TO MODERATE PAIN, #30 Ref 0 Prescribed by: Alexsandra Mendoza on 08/31/18 0855 JOSE A DONNELLY MD Aug 31, 2018 14:27
[2018-08-31 15:00] VITALS: BP 140/84
== END 2018-08-31 17:30 | disposition home or self-care (01) | DRG 330 ==
LOC: OPSVCIP 08:12 → 4 NORTH 15:35
PROVIDERS: ADMIT Surgery; ATTEND Surgery
PROC: 0D1B0Z4 Bypass Ileum to Cutaneous, Open Approach (ICD-10-PCS; 2018-08-25)
PROC: 0DBL0ZZ Excision of Transverse Colon, Open Approach (ICD-10-PCS; principal; 2018-08-25 10:00)
PROC: 0WJG4ZZ Inspection of Peritoneal Cavity, Percutaneous Endoscopic Approach (ICD-10-PCS; 2018-08-25 10:00)
PROC: 5A09357 Assistance with Respiratory Ventilation, Less than 24 Consecutive Hours, Continuous Positive Airway Pressure (ICD-10-PCS; 2018-08-30)
DX: C18.5 Malignant neoplasm of splenic flexure (principal); Z68.41 Body mass index [BMI] 40.0-44.9, adult; K56.7 Ileus, unspecified; E66.01 Morbid (severe) obesity due to excess calories; G47.33 Obstructive sleep apnea (adult) (pediatric); E29.1 Testicular hypofunction; E11.9 Type 2 diabetes mellitus without complications; E03.9 Hypothyroidism, unspecified; Z88.6 Allergy status to analgesic agent; Z88.1 Allergy status to other antibiotic agents; Z88.0 Allergy status to penicillin; Z90.49 Acquired absence of other specified parts of digestive tract; Z82.0 Family history of epilepsy and other diseases of the nervous system; Z83.79 Family history of other diseases of the digestive system; Z82.49 Family history of ischemic heart disease and other diseases of the circulatory system; Z83.3 Family history of diabetes mellitus; Z79.84 Long term (current) use of oral hypoglycemic drugs; Z79.899 Other long term (current) drug therapy
CPT/HCPCS: 36415; 74018; 80053; 82962; 83036; 85025; 85027; 86850; 86900; 86901; 88309; A7015; J1100; J1170; J1650; J1885; J1956; J2001; J2185; J2250; J2405; J2704; J2710; J2765; J3010; J3490; J7030; J7040; J7120; 97110; 97116; 97530; 97535

== ENCOUNTER → 2019-01-22 | Outpatient (CLI) | payer OTHER ==
[~2019-01-22] MED LIST changes: -BACITRACIN 50,000 UNIT in IV NORMAL SALINE 500ML BAG 500 ML IRR ONE; -CLINDAMYCIN 900MG PREMIX 50 ML IV PRN; +GADOBUTROL 7.5 MMOL/7.5 ML VIAL IV ONE; -IV RINGERS,LACTATED 1000ML 1,000 ML IV SCH; -LIDOCAINE 1% PF 2 ML VIAL. ID PRN; -ONDANSETRON PF 4 MG/2 ML VIAL. IV PRN; -PROCHLORPERAZINE 10 MG/2 ML VIAL. IV PRN; +TRAM50TA PO; -fentaNYL PF VIAL 100 MCG/2 ML VIAL IV PRN
--- NOTE | 2019-01-22 13:27 | KCIC ---
Examination: MRI ABDOMEN WO/W CONTRAST History: Colon cancer. Abnormal CT exam. Comparison/Correlation: CT abdomen and pelvis with contrast 07/30/2018, CT chest abdomen and pelvis with contrast 10/09/2018, CT chest abdomen pelvis with contrast 01/11/2019 Findings: Multisequence axial and coronal images of the abdomen were obtained. Following IV contrast, axial images of the liver at multiple time points including delayed phase imaging. Exam is limited due to patient body habitus. Marked fatty infiltration of liver is present. Gallbladder is unremarkable. Within the left hepatic lobe anterior subcapsular aspect near the intersegmental fissure, there is a lesion which is of relatively high signal on out of phase imaging. It is of low signal on in phase imaging. It measures up to 1.7 cm diameter and corresponds with the finding on CT exam of 01/12/2000. It is hypervascular on postcontrast imaging in the arterial phase. Evaluation is limited due to motion/at this site on the postcontrast series. On the delayed postcontrast series, there is rim enhancement and relatively less enhancement centrally within this lesion. No other liver lesions are identified. Spleen is unremarkable. Adrenal glands are normal. Pancreas is partially visualized and unremarkable. Impression: Left hepatic lobe segment 2 hypervascular lesion with delayed rim enhancement. This finding corresponds with 01/11/2019 CT examination. There does not appear to be a corresponding finding on older prior exams. This finding is of concern for metastasis is known history of colon carcinoma. Electronically signed by: Ismael Harris MD (01/22/2019 1:25 PM) [id number]
== END | disposition home or self-care (01) ==
LOC: KCIC MRI 10:05
PROVIDERS: ATTEND Internal Medicine Hematology & Oncology
DX: K76.0 Fatty (change of) liver, not elsewhere classified (principal); K76.9 Liver disease, unspecified; Z85.038 Personal history of other malignant neoplasm of large intestine
CPT/HCPCS: 74183; A9585

== ENCOUNTER 2019-02-03 10:10 | Outpatient (CLI) | payer OTHER ==
[~2019-02-03] VITALS: Ht 185.4 cm; Wt 149.7 kg
[2019-02-03] VITALS (16 sets, daily range): BP systolic 122–151; BP diastolic 72–88
[~2019-02-03 10:10] MED LIST changes: -GADOBUTROL 7.5 MMOL/7.5 ML VIAL IV ONE
[2019-02-03 10:46] LABS: BASO # 0.1 x10^3/uL (0.0-0.2); BASO % 1 % (0-3); EOS # 0.4 x10^3/uL (0.0-0.7); EOS % 4 % (0-3); HEMATOCRIT 43.2 % (39.0-53.0); HEMOGLOBIN 14.3 g/dL (13.0-17.5); LYMPH % 25 % (24-48); MEAN CORPUSCULAR HEMOGLOBIN 32 pg (25-35); MEAN CORPUSCULAR HGB CONC 33 g/dL (31-37); MEAN CORPUSCULAR VOLUME 97 fL (79-100); MONO # 0.6 x10^3/uL (0.0-1.1); MONO % 7 % (0-9); NEUT % 63 % (31-73); PLATELET COUNT 205 x10^3/uL (140-400); RED BLOOD COUNT 4.46 x10^6/uL (4.30-5.70); RED CELL DISTRIBUTION WIDTH 25.3 % (11.5-14.5)
[2019-02-03 10:56] LABS: PROTHROMBIN TIME PATIENT 13.1 SEC (11.7-14.0)
[2019-02-03] MEDS ORDERED: LIDOCAINE WITH 8.4% SOD BICARB 3 ML DISP.SYRIN. ONE (11:02)
[2019-02-03] MEDS ORDERED: MIDAZOLAM HCL/PF 5 MG/5 ML VIAL. ONE (11:18)
[2019-02-03] MEDS ORDERED: fentaNYL PF VIAL 100 MCG/2 ML VIAL ONE (11:18)
[2019-02-03] MEDS ORDERED: ONDANSETRON PF 4 MG/2 ML VIAL. ONE (11:26)
[2019-02-03] MEDS ORDERED: ONDANSETRON PF 4 MG/2 ML VIAL. IV ONE (11:30)
[2019-02-03] MEDS ORDERED: fentaNYL PF VIAL 100 MCG/2 ML VIAL IV ONE (11:45)
[2019-02-03] MEDS ORDERED: MIDAZOLAM HCL/PF 5 MG/5 ML VIAL. IV ONE (11:45)
[2019-02-03] MEDS ORDERED: LIDOCAINE WITH 8.4% SOD BICARB 3 ML DISP.SYRIN. IJ ONE (11:45)
[2019-02-03] MEDS ORDERED: GELATIN SPONGE SIZE 12-7MM SPONGE. TP ONE (12:00)
[2019-02-03 12:32] LABS: ANISOCYTOSIS MARKED; PLT ESTIMATE ADEQUATE (ADEQUATE)
--- NOTE | 2019-02-03 14:30 | NUR ---
Discharge Note: ASHLEY SIEGEL Discharge instructions and discharge home medications reviewed with Patient and a copy given. All questions have been answered and understanding verbalized. Patient tolerated lunch with difficulties. The following instructions and handouts were given: Live biopsy and moderate sedation. Discontinued lines and drains: Right forearm PIV, dressing clean dry intact. Patient discharged to home with son via wheelchair in private vehichle.
--- NOTE | 2019-02-04 10:48 | RAD ---
Procedure: CT-guided biopsy, left hepatic lesion 02/03/2019 Clinical Indication: Nonspecific enhancing left hepatic lesion. History of colon cancer. [id number] conscious sedation time: 30 minutes The patient was monitored by a qualified independent observer throughout the time of sedation. Please refer to the medical record for exact doses of medications utilized to achieve moderate sedation. Consent: The procedure was explained in its entirety to the patient or the patients designated national sales representative by a member of the treatment team, including a discussion of the risks, benefits and commonly accepted alternatives to the procedure, as well as the expected consequences of no therapy whatsoever. Discussion of the risks included, but was not limited to, those that are most frequent and those that are rare but possibly severe or life-threatening, as well as the possibility of unforeseen complications. Technique and Findings: Following informed consent, the patient was prepped and draped in the usual sterile fashion. All elements of maximal sterile barrier technique including the use of a cap, mask, sterile gown, sterile gloves, large sterile sheet, appropriate hand hygiene, and 2% chlorhexidine for cutaneous antisepsis (or acceptable alternative antiseptic per current guidelines) were followed for this procedure. 1% Lidocaine was used to achieve local anesthesia. Under intermittent CT guidance 17-gauge needles advanced of the area of the lesion in the left hepatic lobe. The lesion is occult on noncontrast enhanced CT. Therefore associated landmarks were used for needle placement. Core biopsy samples were obtained and placed in formalin. Gelfoam embolization of the biopsy tract was performed as the needle was removed. The patient tolerated the procedure well without immediate complication. Impression: CT-guided biopsy, left hepatic lesion PQRS Compliance Statement: One or more of the following individualized dose reduction techniques were utilized for this examination: 1. Automated exposure control 2. Adjustment of the mA and/or kV according to patient size 3. Use of iterative reconstruction technique
--- NOTE | 2019-02-04 18:06 | PATHOLOGY ---
[facility] Accession Number: [id number] . 01 Material submitted: . liver - LIVER BIOPSY . 01 Clinical history: . Liver cancer . 02 Diagnosis: Liver tissue, image guided needle biopsies: - Steatosis with focal lobular and portal chronic inflammation. See comment. 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 02 Comment: Sections of the liver image guided needle biopsy reveal segments of liver tissue showing focal prominent steatosis and focal lobular inflammation. There is focal mild chronic inflammation within portal tracts. There is no evidence of malignancy. This is a preliminary report. Final diagnoses are pending expert consultation, the results of which will be reported separately. (JPM:menhaden fishing crew member; 02/04/2019) . Special stains performed: Trichrome stain, reticulin stain, PAS stain, PAS with diastase, and iron stain. . 02 Electronically signed: . Adriel Arellano MD, Pathologist NPI- [id number] . 01 Gross description: . The specimen is received in formalin, labeled "Rafa Jose, liver BX", are two guevara-brown needle cores measuring 0.8 cm and 0.6 cm in length with an average 0.1 cm diameter. The specimen is entirely submitted in A1. ([facility]; 02/03/2019) SHS/SHS . 02 Pathologist provided ICD-10: K76.0, K73.9 . 02 CPT . 580677, 084220, 961614, 384240, 060623, 992683 Specimen Comment: A courtesy copy of this report has been sent to Specimen Comment: [phone], , . Specimen Comment: Report sent to ,DR SANCHEZ / DR GROVES Performed at: 01 [facility] [place] [id number] [facility] [address], [place], [place] [id number] MD Herbert Gonzalez MD Phone: [phone] Performed at: 02 [facility] [address] [place], [place] [id number] MD Adriel Arelalno MD Phone: [phone]
== END 2019-02-03 15:00 | disposition home or self-care (01) ==
LOC: INTRAD 10:10
PROVIDERS: ATTEND Internal Medicine Hematology & Oncology
DX: K76.0 Fatty (change of) liver, not elsewhere classified (principal); K73.8 Other chronic hepatitis, not elsewhere classified; Z88.0 Allergy status to penicillin; C18.5 Malignant neoplasm of splenic flexure; Z88.5 Allergy status to narcotic agent; Z91.018 Allergy to other foods; Z88.1 Allergy status to other antibiotic agents
CPT/HCPCS: 36415; 47000; 77012; 85025; 85610; 85730; 99152; 99153; J2250; J2405; J3010; 88307; 88313

== ENCOUNTER → 2019-04-27 | Outpatient (CLI) | payer OTHER ==
[2019-02-03 14:10] VITALS: BP 122/74
[~2019-04-27] MED LIST changes: +IOHEXOL 240 MG/ML 50ML VIAL. PO ONE; +IOHEXOL 300 MG/ML 100ML VIAL. IV ONE
--- NOTE | 2019-04-27 10:37 | RAD ---
PQRS Compliance Statement: One or more of the following individualized dose reduction techniques were utilized for this examination: 1. Automated exposure control 2. Adjustment of the mA and/or kV according to patient size 3. Use of iterative reconstruction technique PQRS Compliance Statement: One or more of the following individualized dose reduction techniques were utilized for this examination: 1. Automated exposure control 2. Adjustment of the mA and/or kV according to patient size 3. Use of iterative reconstruction technique CT chest, abdomen and pelvis with contrast 04/27/2019 8:30 AM INDICATION: Colon carcinoma with hepatic lesions. COMPARISON: MRI abdomen January 22, 2019, chest, abdomen and pelvis January 11, 2019 TECHNIQUE: Multiple axial CT images of the chest, abdomen and pelvis were obtained after the intravenous administration of 75 mL Isovue-370. Coronal and sagittal reformats are provided. FINDINGS: Thyroid gland is normal in appearance. Right hilar lymph node measures 7 mm by short axis (series 2, image 29). No pathologically enlarged thoracic lymph nodes are identified. Heart size within normal limits. There is no pericardial effusion. Thoracic aorta is normal in course and caliber. Small hiatal hernia. There is a 4 mm solid noncalcified pulmonary nodule along the left major fissure medially (series 2, image 29). Azygos fissure is present. There are no pleural effusions. No pulmonary vascular congestion or pneumothorax. There is hypoattenuation of the hepatic parenchyma compatible with moderate hepatic steatosis. The lateral segment left hepatic lobe, segment II, there is a 15 mm x 17 mm hypervascular lesion abutting the hepatic capsule anteriorly. This finding is stable from January 22, 2019. There is an additional hypervascular lesion along the fissure of the ligamentum teres measuring 25 x 19 mm which appears stable. No new hepatic lesions are identified. Spleen, bilateral adrenal glands, pancreas and gallbladder are normal in appearance. The abdominal aorta is normal in course and caliber. There are no pathologically enlarged lymph nodes in the abdomen and pelvis. There is no abdominal free fluid. There is no free intraperitoneal air. Mild colonic diverticulosis. Oral contrast was administered. Opacified bowel loops demonstrate normal mucosal fold pattern. Small and large bowel are normal in caliber. There is no evidence for bowel obstruction. There are no pericolonic inflammatory changes. Appendix is not definitively visualized. No pericecal inflammatory changes are identified. Bilateral renal parapelvic cysts are identified. The kidneys enhance symmetrically. There is no suspicious renal mass. There is no hydronephrosis. There are no suspected calculi within the kidneys, ureters or urinary bladder. Urinary bladder is within normal limits given degree of distention. Prostate and seminal vesicles appear normal. No suspicious osseous abnormality is identified. IMPRESSION: 1. Stable hyperattenuating masses within the lateral and medial segments of the left hepatic lobe without significant interval change since prior MRI abdomen from January 22, 2019. 2. No pathologically enlarged lymph nodes are identified in the chest, abdomen and pelvis. 3. There is a stable 4 mm solid noncalcified pulmonary nodule along the left major fissure. No new or enlarging solid noncalcified pulmonary nodules. Electronically signed by: Sarah Chatterjee MD (04/27/2019 10:34 AM) [id number]
--- NOTE | 2019-04-27 16:16 | RAD ---
Whole body bone scan Clinical indications: Colon cancer. Malignant neoplasm of splenic flexure. TECHNIQUE: After IV infusion of 25 mCi of technetium 99m MDP, anterior and posterior planar images of the whole body were performed. COMPARISON: No previous bone scan available. FINDINGS: Bilateral renal function is evident. Degenerative activity of both shoulders and sternoclavicular joints is evident. Degenerative activity of both knees and feet are seen. There is a small focus of uptake involving the lower anterior left rib cage. This may be due to trauma or costochondritis. There is no pattern of uptake to indicate osseous metastatic disease. IMPRESSION: No osseous metastatic disease is evident scintigraphically. Electronically signed by: Odin Mckeon MD (04/27/2019 4:13 PM) [facility]
== END | disposition home or self-care (01) ==
LOC: NM 07:34
PROVIDERS: ATTEND Internal Medicine Hematology & Oncology
DX: C18.5 Malignant neoplasm of splenic flexure (principal); K57.30 Diverticulosis of large intestine without perforation or abscess without bleeding; K44.9 Diaphragmatic hernia without obstruction or gangrene; K76.9 Liver disease, unspecified; R91.1 Solitary pulmonary nodule; N28.1 Cyst of kidney, acquired; R16.0 Hepatomegaly, not elsewhere classified
CPT/HCPCS: 71260; 74177; 78306; A9503; Q9966; Q9967

== ENCOUNTER → 2019-07-21 | Outpatient (CLI) | payer OTHER ==
[2019-02-03 14:10] VITALS: BP 122/74
[~2019-07-21] MED LIST changes: +CONTRAST GIVEN. MC PRN
--- NOTE | 2019-07-21 16:05 | RAD ---
EXAM: CT OF THE CHEST, ABDOMEN AND PELVIS WITH CONTRAST. HISTORY: Colon cancer. TECHNIQUE: Computed tomography of the chest, abdomen and pelvis was performed after the intravenous administration of iodinated contrast. COMPARISON: 04/27/2019. FINDINGS: Bone windows reveal no suspicious lesions. There are no pathologically enlarged mediastinal or axillary lymph nodes. There is no pleural or pericardial effusion. The heart is not enlarged. A chronic infarct is suspected at the left ventricular apex. An azygos fissure is noted. A 5 mm right upper lobe nodule on image 21 appears new. A groundglass nodule adjacent to the pleura just anterior to the right major fissure on image 37 measures 9 mm. A tiny intrafissural lymph node on the left on image 36 is likely benign. Diffuse hepatic steatosis is at least moderate. A subcapsular mildly and hyperenhancing nodule on image 15 anteriorly measures 2.6 cm. This is not clearly changed. Another similar focus on the medial aspect of the falciform ligament is less well seen currently. The spleen measures 16.6 cm. The pancreas, adrenal glands and kidneys are unremarkable. Sigmoid diverticulosis is mild. There is no evidence of appendicitis. There is no small bowel obstruction. There is no ascites. Multiple small umbilical and supraumbilical hernias contain only fat. IMPRESSION: 1. Two new pulmonary nodules in the right upper lobe measure up to 9 mm. These are indeterminate but concerning in the setting of prior malignancy. Ongoing follow-up is recommended in 3 months. 2. Small hyperenhancing hepatic nodules adjacent to the falciform ligament are unchanged. 3. Moderate splenomegaly. 4. Multiple small fat-containing umbilical and supraumbilical hernias. *One or more of the following individualized dose reduction techniques were utilized for this examination: 1. Automated exposure control. 2. Adjustment of the mA and/or kV according to patient size. 3. Use of iterative reconstruction technique. Electronically signed by: Gilmar Torres MD (07/21/2019 4:02 PM) [facility]
== END | disposition home or self-care (01) ==
LOC: CT 12:25
PROVIDERS: ATTEND Internal Medicine Hematology & Oncology
DX: C18.5 Malignant neoplasm of splenic flexure (principal); K76.0 Fatty (change of) liver, not elsewhere classified; I10 Essential (primary) hypertension; R91.1 Solitary pulmonary nodule; K57.30 Diverticulosis of large intestine without perforation or abscess without bleeding; K42.9 Umbilical hernia without obstruction or gangrene; R16.1 Splenomegaly, not elsewhere classified; Z87.891 Personal history of nicotine dependence; Z85.038 Personal history of other malignant neoplasm of large intestine
CPT/HCPCS: 71260; 74177; Q9966; Q9967

== ENCOUNTER 2019-08-17 13:25 | Emergency (ER) | payer OTHER ==
[~2019-08-17] VITALS: Ht 185.4 cm; Wt 146.1 kg
[~2019-08-17 13:25] MED LIST changes: -CONTRAST GIVEN. MC PRN; -IOHEXOL 240 MG/ML 50ML VIAL. PO ONE; -IOHEXOL 300 MG/ML 100ML VIAL. IV ONE
--- NOTE | 2019-08-17 15:16 | PHYS DOC ---
Adult General Chief Complaint Chief Complaint: ABDOMINAL PAIN HPI HPI Patient is a 54 year old male who presents with a history of a hiatal hernia, umbilical hernia, spleen cancer, diabetes, colon ca with chemo and resection comes in with mid epigastric sharp and at times throbbing pain that radiates proximally 4 inches up into the sternum area. Patient states that it hurts if he coughs or sneezes or is just sitting watching TV. He states that it will be worse if he leans back and tried to sit back up. He states that he figures that he pulled a muscle but not getting better. Patient states he's been taking Pepcid to keep test acid down in his stomach. Patient states nothing is making this pain better. Patient denies injury or having a recent illness or he's had to cough a lot or sneezes a lot or vomiting. Patient denies nausea, vomiting, shortness of air, fever, dizziness, headache, numbness or tingling, visual changes, weakness, coughing, chest pain. Currently rates his pain an 7 out of 10. Review of Systems Review of Systems Cardiovascular: Sternal pain GI: abdominal pain, denies nausea, vomiting, bloody stools or diarrhea [] All other systems were reviewed and found to be within normal limits, except as documented in this note. Current Medications Current Medications Current Medications Medications (Trade) Dose Ordered Sig/Chana Start Time Stop Time Status Last Admin Dose Admin Fentanyl Citrate (Fentanyl 2ml Vial) 50 mcg 1X ONCE 08/17/19 15:30 08/17/19 15:31 DC 08/17/19 16:03 50 MCG Info (CONTRAST GIVEN -- Rx MONITORING) 1 each PRN DAILY PRN 08/17/19 16:30 08/19/19 16:29 Iohexol (Omnipaque 300 Mg/ml) 75 ml 1X ONCE 08/17/19 16:30 08/17/19 16:32 DC 08/17/19 16:51 75 ML Sodium Chloride 1,000 ml @ 1,000 mls/hr Q1H 08/17/19 15:30 08/17/19 16:29 DC 08/17/19 16:05 1,000 MLS/HR Allergies Allergies Allergies Coded Allergies Type Severity Reaction Last Updated Verified codeine Allergy Severe THROAT SWELLING 07/22/18 Yes Penicillins Allergy Intermediate Hives 08/19/18 Yes acetaminophen Allergy Intermediate Unknown 08/28/18 Yes oxycodone Allergy Intermediate Unknown 08/28/18 Yes strawberry Allergy Intermediate Hives 08/19/18 Yes tetracycline Allergy Intermediate Hives 08/19/18 Yes Physical Exam Physical Exam Constitutional: Well developed, well nourished, no acute distress, non-toxic appearance. [] HENT: Normocephalic, atraumatic, bilateral external ears normal, oropharynx moist, no oral exudates, nose normal. [] Eyes: PERRLA, EOMI, conjunctiva normal, no discharge. [] Neck: Normal range of motion, no tenderness, supple, no stridor. [] Cardiovascular:Heart rate regular rhythm, no murmur [] Lungs & Thorax: Bilateral breath sounds clear to auscultation [] Abdomen: Bowel sounds normal, soft, epigastric up into the sternum tenderness, no masses, no pulsatile masses. [] Skin: Warm, dry, no erythema, no rash. [] Back: No tenderness, no CVA tenderness. [] Extremities: No tenderness, no cyanosis, no clubbing, ROM intact, no edema. [] Neurologic: Alert and oriented X 3, normal motor function, normal sensory function, no focal deficits noted. [] Psychologic: Affect normal, judgement normal, mood normal. [] Current Patient Data Vital Signs Vital Signs Date Time Temp Pulse Resp B/P (MAP) Pulse Ox O2 Delivery O2 Flow Rate FiO2 08/17/19 16:03 17 98 Room Air 08/17/19 14:59 98.2 99 161/91 (114) 98.2 Lab Values Laboratory Tests Test 08/17/19 14:50 08/17/19 15:45 Urine Collection Type Unknown Urine Color Yellow Urine Clarity Clear Urine pH 5.5 Urine Specific [place] >=1.030 Urine Protein Negative mg/dL (NEG-TRACE) Urine Glucose (UA) >=1000 mg/dL (NEG) Urine Ketones (Stick) Negative mg/dL (NEG) Urine Blood Negative (NEG) Urine Nitrite Negative (NEG) Urine Bilirubin Negative (NEG) Urine Urobilinogen Dipstick 0.2 mg/dL (0.2 mg/dL) Urine Leukocyte Esterase Negative (NEG) Urine RBC 0 /HPF (0-2) Urine WBC 1-4 /HPF (0-4) Urine Squamous Epithelial Cells Mod /LPF Urine Bacteria Few /HPF (0-FEW) Urine Mucus Marked /LPF White Blood Count 9.0 x10^3/uL (4.0-11.0) Red Blood Count 4.87 x10^6/uL (4.30-5.70) Hemoglobin 13.7 g/dL (13.0-17.5) Hematocrit 41.0 % (39.0-53.0) Mean Corpuscular Volume 84 fL (79-100) Mean Corpuscular Hemoglobin 28 pg (25-35) Mean Corpuscular Hemoglobin Concent 33 g/dL (31-37) Red Cell Distribution Width 14.7 % (11.5-14.5) H Platelet Count 330 x10^3/uL (140-400) Neutrophils (%) (Auto) 72 % (31-73) Lymphocytes (%) (Auto) 18 % (24-48) L Monocytes (%) (Auto) 6 % (0-9) Eosinophils (%) (Auto) 3 % (0-3) Basophils (%) (Auto) 1 % (0-3) Neutrophils # (Auto) 6.5 x10^3/uL (1.8-7.7) Lymphocytes # (Auto) 1.7 x10^3/uL (1.0-4.8) Monocytes # (Auto) 0.5 x10^3/uL (0.0-1.1) Eosinophils # (Auto) 0.3 x10^3/uL (0.0-0.7) Basophils # (Auto) 0.1 x10^3/uL (0.0-0.2) Prothrombin Time 13.5 SEC (11.7-14.0) Prothrombin Time INR 1.1 (0.8-1.1) Sodium Level 139 mmol/L (136-145) Potassium Level 4.1 mmol/L (3.5-5.1) Chloride Level 102 mmol/L (98-107) Carbon Dioxide Level 28 mmol/L (21-32) Anion Gap 9 (6-14) Blood Urea Nitrogen 11 mg/dL (8-26) Creatinine 0.9 mg/dL (0.7-1.3) Estimated GFR (Cockcroft-Gault) 87.3 BUN/Creatinine Ratio 12 (6-20) Glucose Level 146 mg/dL (70-99) H Calcium Level 8.6 mg/dL (8.5-10.1) Total Bilirubin 0.3 mg/dL (0.2-1.0) Aspartate Amino Transferase (AST) 16 U/L (15-37) Alanine Aminotransferase (ALT) 31 U/L (16-63) Alkaline Phosphatase 94 U/L (46-116) Troponin I Quantitative < 0.017 ng/mL (0.000-0.055) Total Protein 7.1 g/dL (6.4-8.2) Albumin 3.1 g/dL (3.4-5.0) L Albumin/Globulin Ratio 0.8 (1.0-1.7) L Lipase 155 U/L (73-393) Laboratory Tests 08/17/19 15:45 Laboratory Tests 08/17/19 15:45 EKG EKG Sinus Rhythm and no STEMI[] Interpretation Time: [address] Mendoza Radiology/Procedures Radiology/Procedures [] Impressions: [facility] [address] [place] [address] IMAGING REPORT Signed PATIENT: ASHLEY SIEGEL ACCOUNT: [id number] : 1965 LOCATION: ER AGE: 54 SEX: M EXAM STATUS: REG ER ORD. PHYSICIAN: ARI SHIPLEY APRN REASON: epigastric, mid chest pain /IV-LABS@3:17 PROCEDURE: CHEST PA & LATERAL EXAM: Chest, 2 views. HISTORY: Epigastric pain. COMPARISON: CT dated 07/21/2019 FINDINGS: 2 views of chest are obtained. There is suspected left lower lobe atelectasis or interstitial infiltrate. There is no consolidation. The heart is normal in size. There is an incidental azygos lobe. There is no pneumothorax. No pleural effusion is seen. IMPRESSION: Suspected left lower lobe atelectasis or interstitial infiltrate. Electronically signed by: Mery Devi MD (08/17/2019 4:49 PM) [facility] DICTATED and SIGNED BY: MERY DEVI MD DATE: 08/17/19 1649 [facility] [address] [place] [address] IMAGING REPORT Signed PATIENT: ASHLEY SIEGEL ACCOUNT: [id number] : 1965 LOCATION: ER AGE: 54 SEX: M EXAM STATUS: REG ER ORD. PHYSICIAN: ARI SHIPLEY APRN REASON: epigastric pain PROCEDURE: CT ABD PELV W/ IV CONTRST ONLY Exam: CT abdomen and pelvis with contrast INDICATION: Epigastric pain TECHNIQUE: Sequential axial images through the abdomen and pelvis obtained following the administration of 75 mL of Omni 300 IV contrast. Sagittal and coronal reformatted images were reconstructed from the axial data and reviewed. Comparisons: None FINDINGS: Heart size is normal. No pericardial effusion. Visualized lung bases are clear. No pleural effusion. Liver, spleen, pancreas, gallbladder and adrenals are unremarkable. Kidneys demonstrate symmetric enhancement. No perinephric inflammation or hydronephrosis. No renal or ureteral calculi are identified. Bladder is decompressed not well evaluated. Prostate is not enlarged. Large and small bowel are unremarkable. Appendix is not identified. No free abdominal air or fluid. No obstruction. Abdominal aorta has normal course and caliber. Abdominal vasculature is patent. No enlarged intra-abdominal lymph nodes are identified. There is inflammatory changes along the inferior margin of the sternum with likely mildly displaced fracture at the inferior margin of the sternum. IMPRESSION: 1. Question mildly displaced fracture of the inferior margin of the sternum with adjacent inflammatory changes/hematoma. Correlate with point tenderness 2. No acute process identified within the abdomen or pelvis. 3. Diverticulosis without evidence of acute diverticulitis. Exposure: One or more of the following in the visualized dose reduction techniques were utilized for this examination: 1. Automated exposure control 2. Adjustment of the MA and/or KV according to patient size 3. Use of iterative of reconstructive technique Electronically signed by: Jose Genao MD (08/17/2019 5:30 PM) [facility] DICTATED and SIGNED BY: JOSE GENAO MD DATE: 08/17/19 279 Course & Med Decision Making Course & Med Decision Making Abdomen is rounded but soft and tender at epigastric and up into the sternum. Ambulatory with a steady gait. Skin pink warm and dry. Lungs are clear to auscultation in all lobes. Speaks in full clear sentences. He denies any back pain. Patient states he currently takes no medications except for the Pepcid. Patient states he follows up regularly with Dr. Robbins. Vital signs within normal limits. PERRLA. Chest Xray shows IMPRESSION: Suspected left lower lobe atelectasis or interstitial infiltrate. CT abd pelv IMPRESSION: 1. Question mildly displaced fracture of the inferior margin of the sternum with adjacent inflammatory changes/hematoma. Correlate with point tenderness 2. No acute process identified within the abdomen or pelvis. 3. Diverticulosis without evidence of acute diverticulitis. I have spoken to Dr Perla who is education site manager for Dr Robbins. I told him the findings and he states give him pain medications and to have him follow up with [facility]. He stated no other Imaging at this time. Dragon Disclaimer Dragon Disclaimer This electronic medical record was generated, in whole or in part, using a voice recognition dictation system. Departure Departure Impression: Primary Impression: Pneumonia Additional Impression: Sternal fracture Disposition: HOME, SELF-CARE Condition: STABLE Referrals: HENOK GROVES (PCP) Patient Instructions: Pneumonia, Adult, Sternal Fracture-Brief Additional Instructions: Follow-up with Dr. Robbins. Take medication as prescribed. Scripts Tramadol Hcl (TRAMADOL HCL) 50 Mg Tablet 50 MG PO Q6HRS PRN for PAIN, #10 TAB Prov: ARI SHIPLEY APRN 08/17/19 Levofloxacin (LEVOFLOXACIN) 750 Mg Tablet 1 TAB PO DAILY for 5 Days, #5 TAB Prov: ARI SHIPLEY APRN 08/17/19 Problem Qualifiers Primary Impression: Pneumonia Pneumonia type: due to unspecified organism Laterality: unspecified laterality Lung location: unspecified part of lung Qualified Codes: J18.9 - Pneumonia, unspecified organism Additional Impression: Sternal fracture Encounter type: initial encounter Sternal location: unspecified Fracture type: closed Qualified Codes: S22.20XA - Unspecified fracture of sternum, initial encounter for closed fracture ARI SHIPLEY APRN Aug 17, 2019 15:16
[2019-08-17] MEDS ORDERED: fentaNYL PF VIAL 100 MCG/2 ML VIAL IV ONE (15:30)
[2019-08-17] MEDS ORDERED: IV NORMAL SALINE 1000ML BAG 1,000 ML IV SCH (15:30)
[2019-08-17 15:55] LABS: BASO # 0.1 x10^3/uL (0.0-0.2); BASO % 1 % (0-3); EOS # 0.3 x10^3/uL (0.0-0.7); EOS % 3 % (0-3); HEMOGLOBIN 13.7 g/dL (13.0-17.5); LYMPH # 1.7 x10^3/uL (1.0-4.8); LYMPH % 18 % (24-48); MEAN CORPUSCULAR HEMOGLOBIN 28 pg (25-35); MEAN CORPUSCULAR HGB CONC 33 g/dL (31-37); MEAN CORPUSCULAR VOLUME 84 fL (79-100); MONO # 0.5 x10^3/uL (0.0-1.1); MONO % 6 % (0-9); NEUT # 6.5 x10^3/uL (1.8-7.7); NEUT % 72 % (31-73); PLATELET COUNT 330 x10^3/uL (140-400); RED BLOOD COUNT 4.87 x10^6/uL (4.30-5.70); RED CELL DISTRIBUTION WIDTH 14.7 % (11.5-14.5)
--- NOTE | 2019-08-17 16:04 | EKG ---
[facility] [address] [place] [address] Test Date: 2019-08-17 Test Time: 15:51:11 Pat Name: ASHLEY SIEGEL Department: Room: Gender: M Manager Golf: : 1965 Requested By: ARI SHIPLEY Order Number: [id number] Reading MD: Measurements Intervals [place] Rate: 97 P: 43 AK: 166 QRS: -29 QRSD: 106 T: 27 QT: 354 QTc: 453 Interpretive Statements SINUS RHYTHM LEFTWARD AXIS R-S TRANSITION ZONE IN V LEADS DISPLACED TO THE LEFT INCOMPLETE RIGHT BUNDLE BRANCH BLOCK OTHERWISE NORMAL ECG No previous ECG available for comparison
[2019-08-17 16:06] LABS: BILIRUBIN,URINE NEGATIVE (NEG); CLARITY,URINE CLEAR; COLOR,URINE YELLOW; NITRITE,URINE NEGATIVE (NEG); PH,URINE 5.5; PROTEIN,URINE NEGATIVE (NEG-TRACE); UROBILINOGEN,URINE 0.2 mg/dL (0.2 mg/dL)
[2019-08-17 16:06] LABS: PROTHROMBIN TIME PATIENT 13.5 SEC (11.7-14.0)
[2019-08-17 16:16] LABS: SQUAMOUS EPITHELIAL CELL,UR MOD /LPF
[2019-08-17 16:18] LABS: BACTERIA,URINE FEW /HPF (0-FEW); RBC,URINE 0 /HPF (0-2)
[2019-08-17 16:21] LABS: CALCIUM 8.6 mg/dL (8.5-10.1); CREATININE 0.9 mg/dL (0.7-1.3); GFR 87.3; POTASSIUM 4.1 mmol/L (3.5-5.1)
[2019-08-17 16:26] LABS: ALBUMIN 3.1 g/dL (3.4-5.0); ALBUMIN/GLOBULIN RATIO 0.8 (1.0-1.7); TOTAL BILIRUBIN 0.3 mg/dL (0.2-1.0); TOTAL PROTEIN 7.1 g/dL (6.4-8.2)
[2019-08-17] MEDS ORDERED: IOHEXOL 300 MG/ML 100ML VIAL. IV ONE (16:30)
[2019-08-17] MEDS ORDERED: CONTRAST GIVEN. MC PRN (16:30)
--- NOTE | 2019-08-17 16:52 | RAD ---
EXAM: Chest, 2 views. HISTORY: Epigastric pain. COMPARISON: CT dated 07/21/2019 FINDINGS: 2 views of chest are obtained. There is suspected left lower lobe atelectasis or interstitial infiltrate. There is no consolidation. The heart is normal in size. There is an incidental azygos lobe. There is no pneumothorax. No pleural effusion is seen. IMPRESSION: Suspected left lower lobe atelectasis or interstitial infiltrate. Electronically signed by: Mery Gallardo MD (08/17/2019 4:49 PM) [place] [id number]
--- NOTE | 2019-08-17 17:33 | RAD ---
Exam: CT abdomen and pelvis with contrast INDICATION: Epigastric pain TECHNIQUE: Sequential axial images through the abdomen and pelvis obtained following the administration of 75 mL of Omni 300 IV contrast. Sagittal and coronal reformatted images were reconstructed from the axial data and reviewed. Comparisons: None FINDINGS: Heart size is normal. No pericardial effusion. Visualized lung bases are clear. No pleural effusion. Liver, spleen, pancreas, gallbladder and adrenals are unremarkable. Kidneys demonstrate symmetric enhancement. No perinephric inflammation or hydronephrosis. No renal or ureteral calculi are identified. Bladder is decompressed not well evaluated. Prostate is not enlarged. Large and small bowel are unremarkable. Appendix is not identified. No free abdominal air or fluid. No obstruction. Abdominal aorta has normal course and caliber. Abdominal vasculature is patent. No enlarged intra-abdominal lymph nodes are identified. There is inflammatory changes along the inferior margin of the sternum with likely mildly displaced fracture at the inferior margin of the sternum. IMPRESSION: 1. Question mildly displaced fracture of the inferior margin of the sternum with adjacent inflammatory changes/hematoma. Correlate with point tenderness 2. No acute process identified within the abdomen or pelvis. 3. Diverticulosis without evidence of acute diverticulitis. Exposure: One or more of the following in the visualized dose reduction techniques were utilized for this examination: 1. Automated exposure control 2. Adjustment of the MA and/or KV according to patient size 3. Use of iterative of reconstructive technique Electronically signed by: Jose Bonilla MD (08/17/2019 5:30 PM) [facility]
[2019-08-17] MEDS ORDERED: LEVO750T5 PO (17:43)
[2019-08-17] MEDS ORDERED: TRAM50TA PO (18:48)
[2019-08-17 19:06] VITALS: BP 161/84
== END 2019-08-17 19:20 | disposition home or self-care (01) ==
LOC: ER 13:25
DX: S22.20XA Unspecified fracture of sternum, initial encounter for closed fracture (principal); J18.9 Pneumonia, unspecified organism; E11.9 Type 2 diabetes mellitus without complications; Z88.0 Allergy status to penicillin; Z88.5 Allergy status to narcotic agent; Z88.6 Allergy status to analgesic agent; Z88.1 Allergy status to other antibiotic agents; Z91.018 Allergy to other foods; X50.9XXA Other and unspecified overexertion or strenuous movements or postures, initial encounter; Y93.89 Activity, other specified; Y92.89 Other specified places as the place of occurrence of the external cause; Y99.8 Other external cause status
CPT/HCPCS: 36415; 71046; 74177; 80053; 81001; 83690; 84484; 85025; 85610; 93005; 96374; 99285; J3010; J7030; Q9967